=== PATIENT | female | born 1985 | race Caucasian/White ===

== ENCOUNTER 2017-06-01 17:27 | Emergency (ER) | payer BC, SELFPAY ==
[2017-06-01 17:28] VITALS: BP 140/81; PULSE 106; RESP 16; TEMP 36.6; O2SAT 98; BMI 33.5
--- NOTE | 2017-06-01 17:50 | ED.DCSUM_ITS ---
- ER Visit Summary Date of Service: 06/01/17 Chief Complaint: Left thigh pain History of Present Illness: The patient is a 32 F presenting with left thigh pain. Patient states she started having pain in the medial aspect of her left thigh. It then went to behind her left knee. She denies any injury. She went to urgent care today and was sent to the ED to rule out DVT. She has a family history of factor V Leiden. She has been tested for this and does not have it personally. She is 8 weeks . Denies chest pain or shortness of breath. Denies other complaints. Physical Examination: Vitals are stable. Patient is afebrile. Alert no acute distress. HEENT exam is unremarkable. Neck is supple. Lungs are clear and equal bilaterally. Heart is regular rate and rhythm. Extremities are mild left medial thigh tenderness. No swelling or erythema. Normal distal pulses. Skin is warm and dry. No focal neurologic deficit. Remainder of exam is unremarkable. Emergency Department Course and Treatment: Ultrasound of the left lower extremity shows no evidence of DVT. She is advised to use Tylenol for pain. Advised to follow-up with her primary care physician. Advised return to ED for worsening complaints. Disposition: Discharge home Impression: Left thigh pain This note was generated with [employer] dictation software. It may contain incorrect words, spelling, and punctuation that were not noted in review of the chart prior to signing ED Disposition - Plan for ED Patient: Chief Complaint: Lower Extremity Injury Referrals: Harish Lopez MD [Primary Care Provider] -
--- NOTE | 2017-06-01 17:52 | US_ITS ---
STUDY: VENOUS DOPPLER ULTRASOUND - LEFT LOWER EXTREMITY REASON FOR EXAM: Female, 32 years old. Pain TECHNIQUE: Ultrasound evaluation of the deep vein system to include peter-scale imaging and compression was performed. Peter-scale imaging and Doppler sonographic evaluation, including duplex spectral analysis and qualitative color flow sonography, was performed. COMPARISON: None. FINDINGS: Common Femoral Vein: Normal compression, spontaneity and augmentation. Normal color Doppler. Common Femoral Vein/Greater Saphenous Junction: Normal compression. Femoral Proximal: Normal compression. Femoral Middle: Normal compression, spontaneity and augmentation. Normal color Doppler. Femoral Distal: Normal compression. Popliteal Vein: Normal compression, spontaneity and augmentation. Normal color Doppler. Posterior Tibial Vein: Normal compression. Peroneal Vein: Normal compression. US/Venous Duplex Imag/Limited/Uni IMPRESSION: Normal venous Doppler ultrasound of the lower extremity. Electronically Signed: Girish Cedeno DO at 18:39 EDT Tel [phone], Service support ,
[2017-06-01 18:24] VITALS: BP 121/77; PULSE 92; RESP 15; O2SAT 96
--- NOTE | 2017-06-01 18:25 | ED.DEP ---
ED Disposition - Plan for ED Patient: Chief Complaint: Lower Extremity Injury Instructions: ED Knee Pain [facility] Referrals: Harish Lopez MD [Primary Care Provider] -
== END 2017-06-01 18:34 | disposition home or self-care (01) ==
LOC: ED 18:34
PROVIDERS: Emergency Provider Emergency Medicine; Family Provider Family Medicine; PCP Family Medicine
DX: O99.89 Other specified diseases and conditions complicating pregnancy, childbirth and the puerperium (principal); M79.652 Pain in left thigh; Z3A.08 8 weeks gestation of pregnancy
CPT/HCPCS: 93971; 99282

== ENCOUNTER 2018-01-07 00:20 | Inpatient (IN) | payer BC, SELFPAY ==
[2018-01-07 00:10] VITALS: BMI 37.1
[2018-01-07 00:12] LABS: ROM Internal Control Test YES-OK TO RESULT pt. (Internal QC)
[2018-01-07 00:14] LABS: ROM Patient Test POSITIVE (Negative)
[2018-01-07 01:30] LABS: Hematocrit 33.9 % (37-47); Hemoglobin 11.1 g/dl (12.0-15.0); Mean Corp Hgb Conc 32.7 g/gl (32-36); Mean Corpuscular Hgb 28.8 pg (27.0-32.0); Mean Corpuscular Volume 87.8 fL (81-99); Mean Platelet Vol. 10.4 fl (6.2-12.0); Platelet Count 352 K/mm3 (150-450); RBC Distribution Width CV 14.3 % (11.6-14.6); Red Blood Count 3.86 M/mm3 (4.2-5.4); White Blood Count 16.6 K/mm3 (4.4-11.0)
[2018-01-07 01:33] LABS: Scan Indicated on CBC? Y/N NO
[2018-01-07] MEDS: miSOPROStol 25 MCG TABLET PO ×2 (02:51→07:09)
--- NOTE | 2018-01-07 07:40 | HP.PCM_ITS ---
- Problem List (1) PROM (premature rupture of membranes) Status: Acute Qualifiers: PROM gestational age: full term History Date of Admission: 01/07/18 Final FLOR: 01/07/18 Gestational age: 40 Weeks and 0 Days History of this : This is a 32 year-old, G [1], P [0], at 40 weeks gestational age presenting to triage for evaluation of irregular contractions and bright red spotting. Patient reports +FM, denies any regular cramping or contractions. Allergies acetaminophen [From Percocet] Allergy (Verified 01/07/18 00:12) Angioedema meperidine [From Demerol] Allergy (Verified 01/07/18 00:12) Angioedema oxycodone [From Percocet] Allergy (Verified 01/07/18 00:12) Angioedema hydrocodone Adverse Reaction (Verified 01/07/18 00:12) Upset Stomach pseudoephedrine [From Sudafed] Adverse Reaction (Verified 01/07/18 00:12) Upset Stomach Home Medications: Home Medications Vits [Prenatabs FA] 1 tablet PO DAILY 06/01/17 Omeprazole Magnesium [Prilosec Otc] 20 mg PO DAILY 01/07/18 Smoking Status: Never smoker Alcohol: None Number of Fetus(es): 1 Heart Tracing: FHT baseline 130, moderate variability, few accels, no decels TOCO Analysis: Ctx irregular q 1-6 minutes lasting 30 seoncdx, mildly palpable History Past Pregnancies: Past Pregnancies Delivery Date Name GA/Weeks Outcome Route Weight Gender Labor Length Anesthesia Delivery Location Provider FOB Labs: A+, Abs Neg, HepBsAg Neg, Rubella Immune, HIV NR, Syphilis NR, Urine Tox Neg, Urine Culture NEg, GBS Neg, 1 hour GTT 106, GC/CT = Neg/Neg Expected Infant Delivery Method: Spontaneous Vaginal Describe any other labor & delivery plans:: Patient plans an epidural Number of Visits: >15 Review of Systems Constitutional: Denies: Chills, Fever, Weight Change HEENT: Denies: Head Aches, Sinus Congestion, Sinus Drainage Cardiovascular: Denies: Chest Pain, Palpitations Respiratory: Denies: Cough, Shortness of breath at rest, Sputum production Gastrointestinal: Denies: Abdominal Pain, Nausea, Vomiting Genitourinary: Denies: Dysuria Gynecological: Reports: Vaginal discharge - Continues to have some vaginal bright red spotting Musculoskeletal: Denies: Joint Pain, Joint Tenderness Skin: Denies: Rash, Wounds Neurological: Denies: Numbness, Tingling, Focal weakness Psychiatric: Reports: Anxiety - Patient reports increased anxiety with contractions, anxiety and fear with cervical exams. Denies: Depression, Homicidal Ideations, Suicidal Ideations Hematologic/ Lymphatic: Denies: Easy Bruising, Easy Bleeding Physical Exam Vitals: VSS, Afebrile - see nurse's notes for vitals General: Alert, Oriented x3, No apparent distress HEENT: Atraumatic, Normocephalic. Negative for: Thyromegaly, Lymphadenopathy Cardiovascular: Regular rate, Regular Rhythm Lungs: Normal air movement Abdomen: Soft, Non Tender, Non-Distended, Gravid Extremities:: No edema Neurological: Deep Tendon Reflexes 2+/4 and Symmetrical DELIMBER OPERATOR: Normal external genitalia Estimated gestational size: Appropriate for gestational size Presentation: Cephalic Cervix Dilation (cm): 0.5 Station: -2 Effacement (%): 50 Assessment/Plan All Active Problems PROM (premature rupture of membranes) (Acute) This is a 32 year-old, G [1], P [0], at 40 weeks gestational age, PROM, Category I FHT, Labor Augmentation with PO Cytotec. 1) Patient admitted - plans for PO Cytotec. 2nd dose given at 0650 2) Drs. Sharma and Oliver back-up physicians notified of admission and plan of care 3) Anticipate pitocin IV for labor augmentation once cervix is favorable and ripe 4) Encourage position changes and PO hydration 5) Nitrous oxide for pain management at this time - patient reports desire for epidural once it's time Rajani CASTELAN
[2018-01-07 10:18] VITALS: O2SAT 99
[2018-01-07] MEDS: 0.9% Saline Lock 10 ML Syringe IV (10:53)
[2018-01-07] MEDS: Nalbuphine 10 MG/ML Ampul IV (10:58)
[2018-01-07] MEDS: Lactated Ringers 1,000 ML 50 ML IV ×4 (11:00→21:45)
[2018-01-07] MEDS: fentaNYL-bupivacaine (epidural) 100 ML BAG EPIDURAL ×3 (12:05→21:30)
[2018-01-07] MEDS: Ondansetron 4 MG/2 ML Vial IV (12:20)
[2018-01-07] MEDS: 0.9% Normal Saline 100 ML IV.SOLN. INTRA-UTER (12:36)
--- NOTE | 2018-01-07 12:44 | PCM.PN.OB ---
Patient Problems: Active and Suspected Problems PROM (premature rupture of membranes) (Acute) Subjective: Comfortable with epidural. at bedside. Objective: FHT:120, minimal variability, accels, no decels, Category 2 FHT TOCO: Irregular 1cm/90%/-2 Simpson catheter placed without difficulty. - Physical Exam Vital Signs Pulse Ox 99 01/07/18 10:18 Oxygen Delivery Method Room Air Weight: 230 lb 6.129 oz Body Mass Index (BMI) 37.1 Laboratory Tests Past 24 Hrs 01/06/18 01/07/18 01/07/18 23:40 01:15 01:15 WBC 16.6 H RBC 3.86 L Hgb 11.1 L Hct 33.9 L MCV 87.8 MCH 28.8 MCHC 32.7 RDW 14.3 RDW Differential 45.0 H Plt Count 352 MPV 10.4 Vag Amniotic Fld Detect POSITIVE H Blood Type A POSITIVE Antibody Screen NEGATIVE Medical Necessity - Tobacco Use Smoking Status: Never smoker Assessment/Plan All Active Problems PROM (premature rupture of membranes) (Acute) A:SROM Category 2 FHT P: 1) Epidural for pain management. 2) Simpson bulb for continued cervical ripening. 3) Start Pitocin for active management 4) for collaborative physician.
[2018-01-07] MEDS: Oxytocin 30 units/NS 500 ml 30 UNITS/500 ML IV.SOLN IV (12:49)
[2018-01-07] MEDS: proMETHazine 25 MG/ML Syringe IV (18:09)
--- NOTE | 2018-01-07 19:02 | PCM.PN.OB ---
Patient Problems: Active and Suspected Problems PROM (premature rupture of membranes) (Acute) Subjective: Resting in bed, comfortable with epidural. Emesis, Phenergan given for nausea, feeling better. Mother at bedside. Objective: FHT 135, minimal variability, no accels, no decels, Category 2 TOCO: every 2-3 minutes. lasting 60-70 seconds, strong Pitocin at 10 mu's. Cervix 7cm/90%/0. Right side of cervix has become swollen. - Physical Exam Vital Signs Pulse Ox 99 01/07/18 10:18 Oxygen Delivery Method Room Air Weight: 230 lb 6.129 oz Body Mass Index (BMI) 37.1 Laboratory Tests Past 24 Hrs 01/06/18 01/07/18 01/07/18 23:40 01:15 01:15 WBC 16.6 H RBC 3.86 L Hgb 11.1 L Hct 33.9 L MCV 87.8 MCH 28.8 MCHC 32.7 RDW 14.3 RDW Differential 45.0 H Plt Count 352 MPV 10.4 Vag Amniotic Fld Detect POSITIVE H Blood Type A POSITIVE Antibody Screen NEGATIVE Medical Necessity - Tobacco Use Smoking Status: Never smoker Assessment/Plan All Active Problems PROM (premature rupture of membranes) (Acute) A:Active labor, progressing Category 2 FHT P: 1) Continue with active management 2) Positional changes and peanut ball to help reduce swollen cervix 3) updated on patient status.
[2018-01-07] MEDS: Oxytocin 30 units/NS 500 ml 30 UNITS/500 ML IV.SOLN 334 UNITS IV (22:18)
[2018-01-07] MEDS: Oxytocin 30 units/NS 500 ml 30 UNITS/500 ML IV.SOLN 167 UNITS IV (22:48)
--- NOTE | 2018-01-07 23:18 | PCM.OB.VAG ---
- Problem List (1) Vaginal delivery Status: Acute (2) Second degree perineal laceration Status: Acute Vaginal Delivery Maternal Presentation: Spontaneous Rupture of Membranes Method of Induction: Pitocin - augmentation, Simpson Bulb Amniotic Membrane Rupture Type: Spontaneous at home Amniotic Fluid Description: Clear Final FLOR: 01/07/18 Gestational age: 40 Weeks and 0 Days Date of Procedure: 01/07/18 Pre-Operative Diagnosis: SROM Post-Operative Diagnosis: Surgery/ Procedure Performed: Spontaneous Vaginal Delivery Type of Anesthesia: Epidural Description of Procedure: Progressed to complete with urge to push. of viable male infant over 2nd degree perineal laceration. APGARS 8,9. Weight pending. Infant delivered without complications and placed on maternal abdomen skin to skin. Spontaneous cry, mouth and nares suctioned for secretions. Cord clamped and cut after pulsations ceased. Placenta delivered via isaiah, intact, 3 vessel cord. Pitocin started for active 3rd stage management. Perineum inspected and revealed 2nd degree perineal laceration. Repaired with epidural and 3.0 vicryl, well approximated and hemostasis achieved. initiated. Family bonding well. Mom and baby stable. notified of delivery. Presentation: Vertex Placental Delivery Description: Spontaneous Placenta Disposition: [facility] Cord Vessel Description: 3 Vessels Cord Entanglement: None Estimated Blood Loss: 200ml Infant A gender: Male (1 minute): 8 (5 minute): 9 Episiotomy Description: None Laceration: Perineal Extension/lac, 2nd degree Medications given after delivery: IV Pitocin Complications: None
[2018-01-08] MEDS: Acetaminophen 500 MG Tablet 1000 MG PO ×3 (01:44→17:31)
[2018-01-08 04:15] VITALS: BP 108/64; PULSE 98; RESP 18; TEMP 37.3
[2018-01-08 07:40] VITALS: BP 124/71; PULSE 98; RESP 16; TEMP 37.2; O2SAT 97
--- NOTE | 2018-01-08 09:02 | PCM.PN.OB ---
Patient Problems: Active and Suspected Problems PROM (premature rupture of membranes) (Acute) Vaginal delivery (Acute) Second degree perineal laceration (Acute) Subjective: Doing well per patient and nursing staff. Ambulating and taking PO without difficulty. Voiding and passing flatus. . Denies any headache, visual changes, chest pain ,SOB,leg pain, increased vaginal bleeding or clots. Planning D/C home tomorrow. - Physical Exam General: Alert, Oriented x3, Cooperative HEENT: Atraumatic, Normocephalic Lungs: Clear to auscultation, No rhonchi, No wheeze Cardiovascular: Regular rate, Regular Rhythm, No murmurs Abdomen: - - Fundus firm 2 below u Extremities: No edema Psych/Mental Status: Normal Affect, Appropriate Vital Signs Temp Pulse Resp BP Pulse Ox 99 F 98 16 124/71 H 97 01/08/18 07:40 01/08/18 07:40 01/08/18 07:40 01/08/18 07:40 01/08/18 07:40 Oxygen Delivery Method Room Air Weight: 230 lb 6.129 oz Body Mass Index (BMI) 37.1 Intake and Output for Last 24 Hours 01/06/18 01/07/18 01/08/18 23:59 23:59 23:59 Intake Total 4580 / 4580 Output Total 2049 / 2049 400 / 400 Balance 2530 / 2530 -400 / -400 Medical Necessity - Tobacco Use Smoking Status: Never smoker Assessment/Plan All Active Problems PROM (premature rupture of membranes) (Acute) Vaginal delivery (Acute) Second degree perineal laceration (Acute) A:PPD #1 2nd degree perineal laceratin P: 1) Routine PP care. 2) instructions given. 3) Planning D/C home tomorrow.
[2018-01-08 13:23] VITALS: BP 125/81; PULSE 94; RESP 16; TEMP 36.9; O2SAT 98
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
[2018-01-08] MEDS: Ibuprofen 600 MG Tablet PO ×2 (15:08→23:49)
--- NOTE | 2018-01-08 15:14 | CASEMGMT ---
Full social work assessment and progress note in 's chart. No needs identified for SW intervention. Qian PEREZ,VERITOA
[2018-01-08 16:30] VITALS: BP 125/66; PULSE 88; RESP 16; TEMP 36.9; O2SAT 98
[2018-01-08 19:56] VITALS: BP 117/81; PULSE 89; RESP 18; TEMP 36.3; O2SAT 97
[2018-01-08] MEDS: Senna/Docusate Sodium 1 Tablet PO (23:49)
[2018-01-09 02:00] VITALS: BP 133/72; PULSE 87; RESP 18; TEMP 36.3
[2018-01-09] MEDS: Acetaminophen 500 MG Tablet 1000 MG PO (03:11)
[2018-01-09] MEDS: Ibuprofen 600 MG Tablet PO ×2 (06:38→15:24)
[2018-01-09 08:10] VITALS: BP 126/69; PULSE 87; RESP 16; TEMP 36.6; O2SAT 98
--- NOTE | 2018-01-09 08:53 | PN.OBGYN_ITS ---
Patient Problems: Active and Suspected Problems PROM (premature rupture of membranes) (Acute) Vaginal delivery (Acute) Second degree perineal laceration (Acute) Subjective: Patient doing well. Pain controlled. Tolerating regular diet without nausea or vomiting. Ambulating and spontaneously voiding without difficulty. Breast-f eeding. Denies lightheadedness, dizziness, chest pain, shortness of breath, leg pain. Lochia decreasing. She feels ready to go home today. - Physical Exam General: Alert, Oriented x3 HEENT: Atraumatic Lungs: - - No increased resp effort Abdomen: Soft, Non Tender, - - FF@U Extremities: No edema, No Calf Tenderness Skin: No rashes Neurological: Neuro grossly intact Psych/Mental Status: Normal Affect, Appropriate Vital Signs Temp Pulse Resp BP Pulse Ox 97.4 F L 87 18 133/72 H 97 01/09/18 02:00 01/09/18 02:00 01/09/18 02:00 01/09/18 02:00 01/08/18 19:56 Oxygen Delivery Method Room Air Weight: 230 lb 6.129 oz Body Mass Index (BMI) 37.1 Intake and Output for Last 24 Hours 01/07/18 01/08/18 01/09/18 23:59 23:59 23:59 Intake Total 4580 / 4580 Output Total 2049 / 2049 400 / 400 Balance 2530 / 2530 -400 / -400 Medical Necessity - Tobacco Use Smoking Status: Never smoker Assessment/Plan All Active Problems PROM (premature rupture of membranes) (Acute) Vaginal delivery (Acute) Second degree perineal laceration (Acute) PPD#2 s/p - Doing well - - Discussed control - Dispo: D/c home today. Instructions given
--- NOTE | 2018-01-09 08:55 | DCINST_ITS ---
Discharge Diet: No Restrictions Discharge Activity: Return to Normal Activity, May Drive, May Shower May resume sexual activity in: 4-6 weeks Weight Bearing Status: Full weight bearing Lifting Restrictions: None Call your doctor if you observe: Fever of 101 or Higher, Numbness or Tingling, Inability to urinate, Inability to have a bowel movement, Using more than one pad per hour, Shortness of breath, Dizziness, Chest pain, Increased palpitations (irregular heartbeat), Calf discomfort, Uncontrolled pain Additional Instructions: If you experience any of the following, contact your healthcare provider. * Bleeding that soaks a pad every hour for 2 hours * Fever 100.4 or higher * Unrelieved incision or abdominal pain * Swelling, redness, discharge or bleeding from your incision or epis iotomy site * Your incision begins to separate * Problems urinating (including inability to urinate or burning while urinating). * Visual changes * Severe headache * Flu-like symptoms * Pain or redness in one of both of your breasts * Pain, warmth, tenderness or swelling in your legs, especially the calf area * Frequent nausea and vomiting * Symptoms of depression or anxiety If you experience any of the following, call 911 or go to the nearest Emergency Room. * Chest pain * Problems breathing * Seizure activity * Partial or complete paralysis of a body part, slurred speech, weakness or drooping of the face, or a sudden inability to walk or hold your balance Allergies/Adverse Reactions: Allergies acetaminophen [From Percocet] Allergy (Verified 01/07/18 00:12) Angioedema meperidine [From Demerol] Allergy (Verified 01/07/18 00:12) Angioedema oxycodone [From Percocet] Allergy (Verified 01/07/18 00:12) Angioedema hydrocodone Adverse Reaction (Verified 01/07/18 00:12) Upset Stomach pseudoephedrine [From Sudafed] Adverse Reaction (Verified 01/07/18 00:12) Upset Stomach Medications to take at Discharge Vits [Prenatabs FA] 1 tablet PO DAILY 06/01/17 Omeprazole Magnesium [Prilosec Otc] 20 mg PO DAILY 01/07/18 When: Follow up in 1-2 weeks if you desires. Call to schedule appointment to follow up in 4-6 weeks. Primary Care Physician: Harish Lopez MD [Primary Care Provider] - Test Results: Test results from this visit will be discussed in further detail at your follow- up appointment, if applicable.
[2018-01-09 15:15] VITALS: BP 129/77; PULSE 92; RESP 18; TEMP 36.5; O2SAT 97
--- NOTE | 2018-01-13 16:33 | NURSING ---
A voicemail left for patient. Encouraged to call if we could offer any assistance in answering any questions or if she would have any concerns. Everardo MAYS
== END 2018-01-09 16:40 | disposition home or self-care (01) | DRG 807 ==
LOC: WPOUT 00:26
PROVIDERS: Obstetrics & Gynecology; Admitting Provider Obstetrics & Gynecology; Family Provider Family Medicine; PCP Family Medicine; Visit Provider Obstetrics & Gynecology
DX: O42.02 Full-term premature rupture of membranes, onset of labor within 24 hours of rupture (principal); Z37.0 Single live birth; O70.1 Second degree perineal laceration during delivery; K21.9 Gastro-esophageal reflux disease without esophagitis; O99.62 Diseases of the digestive system complicating childbirth; Z3A.40 40 weeks gestation of pregnancy
CPT/HCPCS: 59025; 59050; 84112; 85027; 86850; 86900; 99218; J7120; A4216; G0378; J2405

== ENCOUNTER 2018-03-21 21:11 | Emergency (ER) | payer BC, SELFPAY ==
[2018-03-21 21:12] VITALS: BP 155/79; PULSE 81; RESP 16; TEMP 36.3; O2SAT 99; BMI 35.6
[2018-03-21 21:24] VITALS: BP 160/96; PULSE 85; RESP 16; TEMP 36.5; O2SAT 98
--- NOTE | 2018-03-21 21:50 | ED.VISSUMM ---
- ER Visit Summary Date of Service: 03/21/18 Chief Complaint: Back pain History of Present Illness: The patient is a 33 F with a history of chronic back problems after herniating 2 discs at the age of 16. She had back surgery approximately 7 years ago. She had episode of back pain and left leg numbness and weakness approximately a month ago that was treated with anti-inflammatories and steroids. Patient states she had been doing better, but slipped on the ice 2 days ago and now has recurrent pain and weakness in the left lower extremity. She was seen by her chiropractor today but had increasing pain tonight. She did take ibuprofen prior to arrival. Patient has known allergies to oxycodone, hydrocodone, Demerol. Physical Examination: Vital signs significant for blood pressure of 160/96, otherwise normal. Head neck examination is normal. Heart is regular rate and rhythm. Lung sounds are clear. Abdomen is soft nontender. Back examination reveals mild tenderness in the low lumbar midline as well as left paraspinals. Straight leg raise in the seated position is negative. Patient has 2+ bilateral patellar reflexes with strong distal pulses. Patient does have slight weakness noted to the left leg, but overall decent range of motion and is able to lift her leg off the bed. Test Results: [] Emergency Department Course and Treatment: Patient was initially given morphine, Zofran, and Flexeril. On repeat evaluation she reported only minimal improvement. She was then given 0.5 mg of Dilaudid. At this time she does report improvement. Patient has reported allergies to oxycodone, hydrocodone, and Demerol. She states they tend to make her stomach upset do not help her pain. She will be given a fentanyl patch along with Naprosyn, prednisone, and Flexeril. She will be referred to both orthopedic groups to follow-up with their spine specialists. Treatment Plan: [] Disposition: Discharge Impression: Acute on chronic back pain This note was generated with [email or web address] dictation software. It may contain incorrect words, spelling, and punctuation that were not noted in review of the chart prior to signing ED Disposition - Plan for ED Patient: Chief Complaint: Back Referrals: Harish Lopez MD [Primary Care Provider] -
[2018-03-21] MEDS: Ondansetron 4 MG/2 ML Vial IV (21:58)
[2018-03-21] MEDS: Morphine 4 MG/ML Syringe IV (22:00)
[2018-03-21] MEDS: HYDROmorphone 0.5 MG/0.5 ML SYRINGE IV (22:51)
--- NOTE | 2018-03-21 23:58 | ED.DEP ---
ED Disposition - Plan for ED Patient: Disposition: Home or Assisted Living Chief Complaint: Back Instructions: ED Neck Back Pain General Prescriptions: Fentanyl 1 each TD Q72H 3 Days #2 patch.td72 Naproxen [Naprosyn] 500 mg PO BID PRN PRN #20 tablet PRN Reason: Pain predniSONE tablet 60 mg PO DAILY #15 tablet Cyclobenzaprine [Flexeril] 10 mg PO TID PRN #20 tablet PRN Reason: Muscle Spasm Referrals: Harish Lopez MD [Primary Care Provider] - Krystle Diaz MD [STAFF PHYSICIAN] - Chadd Garnett MD [STAFF PHYSICIAN] - Reina Tristan DO [STAFF PHYSICIAN] -
[2018-03-22 00:25] VITALS: BP 120/70; PULSE 80; RESP 16; O2SAT 97
--- OUTSIDE RECORDS SUMMARY | 2018-05-24 05:36 | XMS RPT_ITS ---
:1985 Author Organization OHIP Care Team Providers Name Role Phone Moisés Lopez Primary Care Unavailable Cyndi Harris Attending Unavailable Moisés Lopez Attending Unavailable Moisés Lopez Referring Unavailable John, Moisés Primary Care Unavailable John, Moisés Primary Care Unavailable Kiersten Segura Attending Unavailable ASSESSMENT, HEALTH RISK Attending Unavailable Moisés Lopez Primary Care Unavailable John, Moisés Primary Care Unavailable Stephanie Boyd Admitting Unavailable Stephanie Boyd Attending Unavailable MOISÉS BELLA Attending Unavailable LASHON WANG Attending Unavailable LASHON WANG Referring Unavailable LASHON WANG Attending Unavailable LASHON WANG Referring Unavailable JASON NASH Attending Unavailable BRUNILDA DALAL LASHON Referring Unavailable SCOTT NELLIE (CNM) Referring Unavailable HOSEA LIGHT Attending Unavailable SCOTT NELLIE (CNM) Referring Unavailable SCOTT NELLIE (CNM) Attending Unavailable HOSEA LIGHT Referring Unavailable JASON NASH Attending Unavailable JASON NASH Referring Unavailable LILIAN SOODA (CNM) Attending Unavailable SUSAN KIMBROUGH (PRIVATE WATCHMAN) Attending Unavailable INDIGO, BRITNEY (CNM) Attending Unavailable INDIGO, BRITNEY (CNM) Attending Unavailable INDIGO, BRITNEY (CNM) Referring Unavailable CHAVEZ, NELLIE (CNM) Attending Unavailable CHAVEZ, NELLIE (CNM) Referring Unavailable CHAVEZ, NELLIE (CNM) Attending Unavailable INDIGO, BRITNEY (CNM) Attending Unavailable MEÑO AZUL Attending Unavailable STEPHANIE BOYD Attending Unavailable MEÑO AZUL Attending Unavailable LASHON WANG Attending Unavailable STEPHANIE BOYD Attending Unavailable SCOTT, NELLIE (CNM) Attending Unavailable SCOTT NELLIE (CNM) Attending Unavailable SUSAN KIMBROUGH (PRIVATE WATCHMAN) Attending Unavailable PROBLEMS PROBLEMS DATE TYPE CONDITION / CODE ATTENDING STATUS SOURCE 03/23/2018 Unknown M54.10 - Moisés Lopez Active [facility], Community site unspecified / Hospital M54.10(ICD-10) Repository 02/24/2018 Active Sciatica, left MOISÉS BELLA Active [facility] side / [facility] Other [place] M54.32(ICD-10) Repository 10/18/2017 Active 28 weeks gestation NA Active [facility] of / [facility] Z3A.28(ICD-10) Repository 08/16/2017 Active 19 weeks gestation NELLIE CHAVEZ Active [facility] of / (CNM) Main [place] Z3A.19(ICD-10) Repository 06/23/2017 Active Encounter for NA Active [facility] Main [place] screening for Repository nuchal translucency / Z36.82(ICD-10) 06/23/2017 Active Encounter for NA Active [facility] supervision of [facility] normal first Repository , first trimester / Z34.01(ICD-10) 06/23/2017 Active 11 weeks gestation NA Active [facility] of / [facility] [place] Z3A.11(ICD-10) Repository 05/21/2017 Active Obesity NA Active [facility] complicating [facility] [place] , Repository unspecified trimester / O99.210(ICD-10) 05/24/2017 Active Encounter for NA Active [facility] supervision of [facility] other normal Repository , first trimester / Z34.81(ICD-10) 05/21/2017 Active Unknown / NA Active [facility] UNK(Unknown) Main [place] Repository PROCEDURES PROCEDURES No Procedure Records FoundRESULTS RESULTS L/S SPINE MIN 4 Observed: 03/23/2018 Status: F Source: [place] VIEWS 12:21 PM [facility] REPOSITORY [facility] Imaging Services [address] [place] [address] L/S Spine Min 4 Views MR#: [id number] Acct: [id number] Name: KATIE JUAREZ Rep #: [id number] : 1985 F 33 From: Yanick Caldera MD PCP: Moisés Lopez MD Status: REG CLI Study: L/S Spine Min 4 Views Date of Exam: 03/23/18 Exam# [id number] Ordering Dr: Moisés Lopez MD HISTORY: Back Pain COMPARISON: None FINDINGS: XR Spine Lumbar 5 views The lumbar vertebra show normal height and alignment. No fracture or bony abnormality. L5-S1 mild disc space narrowing compatible with early degenerative disc disease. No spondylolisthesis. The SI joints appear preserved. Constipation pattern. RAD/L/S Spine Min 4 Views IMPRESSION: 1. No fracture or acute disease. 2. L5-S1 early degenerative disc disease. 3. Constipation pattern. at 0515 Reported and signed by: Yanick Caldera MD Electronically Signed: Yanick Caldera, at 5:14 EST Tel , Service support , CC: Moisés Lopez MD Grounds Worker: Signed EMERGENCY DEPARTMENT Observed: 03/22/2018 Status: C Source: [place]IR SUMMARY 9:32 AM [facility] REPOSITORY [facility] Medical Records Department [address] [place] [address] Emergency Department Summary 03/21/18 2150 MR#: [id number] Acct: [id number] Name: KATIE JUAREZ Rep #: [id number] : 1985 33 From: Cyndi Harris MD PCP: Moisés Lopez MD Status: DEP ER ADDENDUM by Kentrell Hutchinson MD on 03/22/18 at 0932 Received a call from patient. The prescription for fentanyl did not have a strength. Will attempt to transmit electronically otherwise father will need to present to the emergency room to get a new prescription. 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 She had back surgery approximately 7 years ago. She had episode of back pain and left leg numbness and weakness approximately a month ago that was treated with anti-inflammatories and steroids. Patient states she had been doing better, but slipped on the ice 2 days ago and now has recurrent pain and weakness in the left lower extremity. She was seen by her chiropractor today but had increasing pain tonight. She did take ibuprofen prior to arrival. Patient has known allergies to oxycodone, hydrocodone, Demerol. Physical Examination: Vital signs significant for blood pressure of 160/96, otherwise normal. Head neck examination is normal. Heart is regular rate and rhythm. Lung sounds are clear. Abdomen is soft nontender. Back examination reveals mild tenderness in the low lumbar midline as well as left paraspinals. Straight leg raise in the seated position is negative. Patient has 2+ bilateral patellar reflexes with strong distal pulses. Patient does have slight weakness noted to the left leg, but overall decent range of motion and is able to lift her leg off the bed. Test Results: [] Emergency Department Course and Treatment: Patient was initially given morphine, Zofran, and Flexeril. On repeat evaluation she reported only minimal improvement. She was then given 0.5 mg of Dilaudid. At this time she does report improvement. Patient has reported allergies to oxycodone, hydrocodone, and Demerol. She states they tend to make her stomach upset do not help her pain. She will be given a fentanyl patch along with Naprosyn, prednisone, and Flexeril. She will be referred to both orthopedic groups to follow-up with their spine specialists. Treatment Plan: [] Disposition: Discharge Impression: Acute on chronic back pain This note was generated with ViVu dictation software. It may contain incorrect words, spelling, and punctuation that were not noted in review of the chart prior to signing ED Disposition - Plan for ED Patient: Chief Complaint: Back Referrals: Moisés Lopez MD [Primary Care Provider] - What to do if you have Problems For any increased pain, shortness of breath, bleeding, nausea or vomiting, chest pain, or any unexpected problems, contact your Primary Care Provider. Call [facility] ([phone]) or report to the closest Emergency Room. Call 911 if necessary. 03/22/18 0001 <Electronically signed by Cyndi Harris MD> Date Cyndi Harris MD Cosigner Signature (If Indicated): Date CC: Moisés Lopez MD DISCHARGE INSTRUCTION Observed: 03/21/2018 Status: F Source: [place] 11:59 PM [facility] REPOSITORY [facility] Medical Records Department [address] [place] [address] Discharge Instruction 03/21/18 2358 MR#: [id number] Acct: [id number] Name: ANNKATIE Rep #: [id number] : 1985 33 From: Cyndi Harris MD PCP: Moisés Lopez MD Status: REG ER ED Disposition - Plan for ED Patient: Disposition: Home or Assisted Living Chief Complaint: Back Instructions: ED Neck Back Pain General Prescriptions: Fentanyl 1 each TD Q72H 3 Days #2 patch.td72 Naproxen [Naprosyn] 500 mg PO BID PRN PRN #20 tablet PRN Reason: Pain predniSONE tablet 60 mg PO DAILY #15 tablet Cyclobenzaprine [Flexeril] 10 mg PO TID PRN #20 tablet PRN Reason: Muscle Spasm Referrals: Moisés Lopez MD [Primary Care Provider] - Krystle Diaz MD [STAFF PHYSICIAN] - Chadd Garnett MD [STAFF PHYSICIAN] - Reina Tristan DO [STAFF PHYSICIAN] - What to do if you have Problems For any increased pain, shortness of breath, bleeding, nausea or vomiting, chest pain, or any unexpected problems, contact your Primary Care Provider. Call [facility] ([phone]) or report to the closest Emergency Room. Call 911 if necessary. 03/21/18 7586 <Electronically signed by Cyndi Harris MD> Date Cyndi Harris MD Cosigner Signature (If Indicated): Date CC: Moisés Lopez MD DISCHARGE INSTRUCTION Observed: 03/21/2018 Status: F Source: [place] 11:57 PM [facility] REPOSITORY [facility] Medical Records Department [address] [place] [address] Discharge Instruction 03/21/18 2347 MR#: [id number] Acct: [id number] Name: KATIE JUAREZ Rep #: [id number] : 1985 33 From: Cyndi Harris MD PCP: Moisés Lopez MD Status: REG ER ED Disposition - Plan for ED Patient: Disposition: Home or Assisted Living Chief Complaint: Back Instructions: ED Neck Back Pain General Prescriptions: Fentanyl 1 each TD Q72H 3 Days #2 patch.td72 Naproxen [Naprosyn] 500 mg PO BID PRN PRN #20 tablet PRN Reason: Pain predniSONE tablet 60 mg PO DAILY #15 tablet Cyclobenzaprine [Flexeril] 10 mg PO TID PRN #20 tablet PRN Reason: Muscle Spasm Referrals: Moisés Lopez MD [Primary Care Provider] - Chadd Garnett MD [STAFF PHYSICIAN] - Krystle Diaz MD [STAFF PHYSICIAN] - What to do if you have Problems For any increased pain, shortness of breath, bleeding, nausea or vomiting, chest pain, or any unexpected problems, contact your Primary Care Provider. Call [facility] ([phone]) or report to the closest Emergency Room. Call 911 if necessary. 03/21/18 9122 <Electronically signed by Cyndi Harris MD> Date Cyndi Harris MD Cosigner Signature (If Indicated): Date CC: Moisés Lopez MD ED NOTE Observed: 02/24/2018 Status: COMPLETED Source: [place] 7:55 AM [facility] REPOSITORY [facility] ID: [id number] Author: Leona (Rn) TABATHA Mosher Service: Emergency Medicine Author Type: Registered Nurse Type: ED Notes Filed: 02/25/2018 10:28 AM Note Text: Patient Call Back Information ? How are you doing ? better ? Did we appropriately manage your pain? Yes ? Did you understand your discharge instructions? Yes ? Did you get your prescriptions filled? Yes ? Were you able to make a follow-up appointment with your physician? Yes ? Were you comfortable during your stay here? Yes ? Did a member of the ER nursing team round on you during your visit? Yes ? You will receive a patient satisfaction survey in the mail in the nest 2 weeks, please take the time to fill out the survey as your input from your ER visit is very important to us. Yes ? Can we do anything else to help you? No ED NOTE Observed: 02/24/2018 Status: COMPLETED Source: [place] 7:32 AM [facility] REPOSITORY [facility] ID: [id number] Author: Leona GonzalezRn) TABATHA Mosher Service: Emergency Medicine Author Type: Registered Nurse Type: ED Notes Filed: 02/24/2018 7:32 AM Note Text: Received report from sanjiv douglass rn , assumed care of pt ED NOTE Observed: 02/24/2018 Status: COMPLETED Source: [place] 7:13 AM [facility] REPOSITORY [facility] ID: [id number] Author: John Paul GonzalezRn) TABATHA Douglass Service: Nursing Author Type: Registered Nurse Type: ED Notes Filed: 02/24/2018 7:17 AM Note Text: Patient informed: the name of medication, why we are giving it, possible side effects, what they may expect to feel, and was offered a chance to ask questions, prior to the administration of Morphine, prednisone. ED NOTE Observed: 02/24/2018 Status: COMPLETED Source: [place] 6:23 AM [facility] REPOSITORY [facility] ID: [id number] Author: John Paul GonzalezRn) TABATHA Douglass Service: Nursing Author Type: Registered Nurse Type: ED Notes Filed: 02/24/2018 6:28 AM Note Text: Patient informed: the name of medication, why we are giving it, possible side effects, what they may expect to feel, and was offered a chance to ask questions, prior to the administration of Toradol, Norflex. ED NOTE Observed: 02/24/2018 Status: COMPLETED Source: [place] 6:15 AM [facility] REPOSITORY [facility] ID: [id number] Author: Jacquie GonzalezRn) TABATHA Shepherd Service: Emergency Medicine Author Type: Registered Nurse Type: ED Notes Filed: 02/24/2018 6:15 AM Note Text: Patient informed: the name of medication, why we are giving it, possible side effects, what they may expect to feel, and was offered a chance to ask questions, prior to the administration of toradol, norflex ED PROV NOTE Observed: 02/24/2018 Status: COMPLETED Source: [place] 6:13 AM [facility] REPOSITORY [facility]NO ID: [id number] Author: Moisés Bella DO Service: Emergency Medicine Author Type: Physician Type: ED Provider Notes Filed: 02/24/2018 7:48 AM Note Text: ED Provider Note Patient Name: Katie Juarez SERVICE DATE: 02/24/18 History Patient presents with: Back Pain Patient presents with back pain that began approximately 1 hour prior to arrival. Patient states she was changing a diaper when she developed back pain. The patient states the pain is over the left lower lumbar area and radiates to her left leg and foot. Patient admits to some paresthesias in her left foot. She denies any weakness. Patient denies any bowel or bladder changes. Patient denies any saddle anesthesia. Patient denies any trauma or injury. PAST MEDICAL HISTORY Diagnosis Date - Anxiety - anxiety - Depression - Fibrocystic breast changes - fibrocystic breasts - kidney stone 2017 - Lumbar back pain - Migraines - nausea with anesthesia - Other acne PAST SURGICAL HISTORY Procedure Laterality Date - BACK SURGERY HX - EXTRACTION ERUPTED TOOTH/EXR 10/18/2014 x4 - PAST SURGICAL HISTORY OF tonsillectomy - PAST SURGICAL HISTORY OF 01/03/2013 Lumbar (Dr. Brown) - TONSILLECTOMY HX FAMILY HISTORY Problem Relation Age of Onset - Allergies Mother - other (Ovarian cysts) Mother - other (Factor V- Pt states she was tested and does not have) Mother - None Father - other (esophageal reflux) Maternal Grandmother - Heart Maternal Grandfather - Alzheimer's Disease Paternal Grandmother Social History Social History Main Topics - Smoking status: Never Smoker - Smokeless tobacco: Never Used - Alcohol use Yes Comment: rare, not while - Drug use: No - Sexual activity: Yes Partners: Male ALLERGIES Allergen Reactions - Demoral [Meperidine] Swelling - Hydrocodone-Acetami* GI Upset - Percocet [Oxycodone* Swelling - Sudafed [Pseudoephe* Shortness of Breath Review of Systems Respiratory: Negative for shortness of breath. Cardiovascular: Negative for chest pain. Gastrointestinal: Negative for nausea and vomiting. Genitourinary: Negative for difficulty urinating and dysuria. Musculoskeletal: Positive for back pain. Negative for neck pain. Neurological: Positive for numbness. Physical Exam BP 145/99 Pulse 86 Temp (Src) 98.2 (Temporal Artery) Resp 20 Ht 5' 6 (1.68m) Wt 211 lb (95.7kg) SpO2 97% BMI 34.07 kg/(m2). Physical Exam Constitutional: She is oriented to person, place, and time. She appears well-developed and well-nourished. HENT: Head: Normocephalic and atraumatic. Neck: Normal range of motion. Cardiovascular: Normal rate and regular rhythm. Pulmonary/Chest: Effort normal and breath sounds normal. Abdominal: Soft. There is no tenderness. Musculoskeletal: Lumbar back: She exhibits decreased range of motion, tenderness, pain and spasm. She exhibits no bony tenderness and no deformity. Back: Neurological: She is alert and oriented to person, place, and time. She has normal strength and normal reflexes. No cranial nerve deficit. Reflex Scores: Patellar reflexes are 2+ on the right side and 2+ on the left side. Achilles reflexes are 2+ on the right side and 2+ on the left side. Skin: Skin is warm and dry. Psychiatric: She has a normal mood and affect. Her behavior is normal. Nursing note and vitals reviewed. Diagnostic Testing ED Labs Ordered and Reviewed - No data to display Procedures ED Course / Clinical Impression Clinical Impressions as of Feb 25 744 Sciatica of left side MDM / Disposition / Plan Patient was given injections of Toradol and Norflex initially. Patient had minimal relief with this. Patient was given injection of morphine and a dose of oral prednisone. Patient states she was starting to feel better after this. Patient was instructed to go home and rest. Patient was instructed to continue using ice to the area. Patient was given prescriptions for prednisone and Norflex. Patient was instructed to follow-up with her primary care physician in 5-7 days. Patient understood and was agreeable with the plan. All questions were answered. Disposition The patient was discharged and given RX. Counseled patient and family regarding suspected diagnosis. As well as the need for follow-up. Discharged home with verbal and written instructions. They were instructed to return as needed for persistent or worsening symptoms or any new concerns. Medication(s) prescribed include prednisone, Norflex. Condition at disposition is stable. SIGNATURE: DO Moisés Canales DO 02/24/18 0748 ED NOTE Observed: 02/24/2018 Status: COMPLETED Source: [place] 6:04 AM [facility] REPOSITORY [facility] ID: [id number] Author: John Paul (Rn) TABATHA Douglass Service: Nursing Author Type: Registered Nurse Type: ED Notes Filed: 02/24/2018 6:07 AM Note Text: Pt reports back pain that started last night. Pt has limited movement in torso and lower left extremity. Pt is not able to light left leg off bed. Pt states that she has had pain like this before, just not so intense, and was alleviated by chiropractic intervention. Pt is tearful. Pt states that she did not take any medications at home because I wasn't sure what would work for this. Pt utilized cold therapy prior to visit to ED. ED NOTE Observed: 02/24/2018 Status: COMPLETED Source: [place] 5:58 AM [facility] REPOSITORY [facility] ID: [id number] Author: Jacquie GonzalezRn) TABATHA Shepherd Service: Emergency Medicine Author Type: Registered Nurse Type: ED Notes Filed: 02/24/2018 5:59 AM Note Text: Back pain, sudden onset 0430 while changing an infant on the changing table. PROGRESS Observed: 02/23/2018 Status: COMPLETED Source: [place] 1:38 PM [facility] REPOSITORY [facility]NO ID: [id number] Author: Susan Gavin) Joel Service: (none) Author Type: Nurse Practitioner Type: Progress Notes Filed: 02/23/2018 1:44 PM Note Text: Katie Juarez is a 33 year old female who presents for problem visit Follow up for yeast on the nipple with . HPI: pt states that she is still very sore and the nipples are red. She is using the nipple cream. Denies any fever, chills, bleeding or cracking. PAST MEDICAL HISTORY Diagnosis Date - Anxiety - anxiety - Depression - Fibrocystic breast changes - fibrocystic breasts - kidney stone 2017 - Lumbar back pain - Migraines - nausea with anesthesia - Other acne PAST SURGICAL HISTORY Procedure Laterality Date - BACK SURGERY HX - EXTRACTION ERUPTED TOOTH/EXR 10/18/2014 x4 - PAST SURGICAL HISTORY OF tonsillectomy - PAST SURGICAL HISTORY OF 01/03/2013 Lumbar (Dr. 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 omeprazole (PRILOSEC) 20 mg capsule Take 1 capsule by mouth once daily. Entcqrna-Ee-Obv-Fe-FA ( VITAMIN) tab Take 1 tablet by mouth. fluconazole (DIFLUCAN) 150 mg tablet Take 1 tablet by mouth one time only for 1 dose. Repeat in 3 days. Norethindrone, Contraceptive, (ORTHO MICRONOR) 0.35 mg tablet Take 1 tablet by mouth once daily. No current facility-administered medications for this visit. Allergies As of Date: 02/23/2018 Allergen Noted Reaction DEMORAL [MEPERIDINE] 05/23/2012 Swelling HYDROCODONE-ACETAMINOPHEN 05/24/2017 GI Upset PERCOCET [OXYCODONE-ACETAMINOPHEN]05/23/2012 Swelling SUDAFED [PSEUDOEPHEDRINE HCL] 03/02/2006 Shortness of Breath Fully Assessed 02/23/2018 REVIEW OF SYSTEMS Breast: red nipples and pain. Expanded ROS: N/A Allergies and current medication updated:Yes EXAM: BP 118/72 Wt 211 lb (95.7kg) GENERAL: pleasant, female in no apparent distress HEENT: Normocephalic, atraumatic, mucus membranes moist and no lesions BREAST: soft, symmetric, no dominant mass, no lymphadenopathy, no nipple discharge and nipples red no cracking or bleeding noted CHEST: Normal inspiratory effort NEURO: alert and oriented x3,exam grossly non-focal ASSESSMENT AND PLAN: Yeast infection of the nipples Diflucan x 2 doses Continue to use the nipple cream Follow up Wednesday if symptoms are not resolved Susan Kimbrough APRN.PRIVATE WATCHMAN CNOV Observed: 02/23/2018 Status: COMPLETED Source: [place] 12:45 PM [facility] REPOSITORY Office Visit (WOOB) KATIE JUAREZ ([id number]) 1985 F T Date Time Provider Department 02/23/18 12:45 PM SUSAN KIMBROUGH (LALA) WOOB During your visit today, we recorded the following information about you: Blood pressure Weight 118/72 95.7 kg Susan Kimbrough APRN.CNP 02/23/2018 1:44 PM Signed Katie Juarez is a 33 year old female who presents for problem visit Follow up for yeast on the nipple with . HPI: pt states that she is still very sore and the nipples are red. She is using the nipple cream. Denies any fever, chills, bleeding or cracking. PAST MEDICAL HISTORY Diagnosis Date - Anxiety - anxiety - Depression - Fibrocystic breast changes - fibrocystic breasts - kidney stone 2016 - Lumbar back pain - Migraines - nausea with anesthesia - Other acne PAST SURGICAL HISTORY Procedure Laterality Date - BACK SURGERY HX - EXTRACTION ERUPTED TOOTH/EXR 10/18/2014 x4 - PAST SURGICAL HISTORY OF tonsillectomy - PAST SURGICAL HISTORY OF 01/03/2013 Lumbar (Dr. 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 omeprazole (PRILOSEC) 20 mg capsule Take 1 capsule by mouth once daily. Evtqahep-Ld-Bts-Fe-FA ( VITAMIN) tab Take 1 tablet by mouth. fluconazole (DIFLUCAN) 150 mg tablet Take 1 tablet by mouth one time only for 1 dose. Repeat in 3 days. Norethindrone, Contraceptive, (ORTHO MICRONOR) 0.35 mg tablet Take 1 tablet by mouth once daily. No current facility-administered medications for this visit. Allergies As of Date: 02/23/2018 Allergen Noted Reaction DEMORAL [MEPERIDINE] 05/23/2012 Swelling HYDROCODONE-ACETAMINOPHEN 05/24/2017 GI Upset PERCOCET [OXYCODONE-ACETAMINOPHEN]05/23/2012 Swelling SUDAFED [PSEUDOEPHEDRINE HCL] 03/02/2006 Shortness of Breath Fully Assessed 02/23/2018 REVIEW OF SYSTEMS Breast: red nipples and pain. Expanded ROS: N/A Allergies and current medication updated:Yes EXAM: BP 118/72 Wt 211 lb (95.7kg) GENERAL: pleasant, female in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 or go to your nearest emergency department. Cord-Blood Banking Up until recently, the umbilical cord--along with the blood that remained in it after a baby was born and the cord cut--was simply discarded by the hospital. Then, in the late 1980s, researchers discovered that cord blood possessed unusual properties that made it useful in the treatment of patients with some cancers and other illnesses. While the actual process of collecting cord blood is straightforward, many parents are not even aware that this option now exists, much less familiar with all the issues involved. The case for saving your baby's cord blood The blood running back and forth between your baby and the placenta is full of immature cells called stem cells. Unlike embryonic stem cells, which have the ability to develop into any type of body cell, cord-blood stem cells already are locked into a certain, vital function: making all the different components of the blood, such as platelets, white blood cells, and red blood cells-serving, in effect, like bone marrow. When transfused into a patient whose own blood cells have faulty genetic coding or have been destroyed by chemotherapy or other cancer treatments, the cord-blood cells can implant themselves in the bone marrow and generate legions of new, healthy cells. These days, cord-blood transplants most commonly are used in cancer patients when a donor can't be found for a bone-marrow transplant. The treatment is particularly effective in young patients- the [facility] Cord Blood Bank reports a 70 percent success rate in children, but only 20 to 40 percent in adults. Researchers envision improving those odds and see many future applications as well, such as curing sickle cell disease and other blood-related genetic illnesses. So there is a possibility that your child, or someone else, may need these super-healthy and versatile cells one day. The drawbacks Aside from not knowing about this medical option, the main reason most people do not save their baby's stem cells is cost. In a private blood bank, the initial costs run from $275 to $1,500. Most also charge a yearly storage fee of $50 to $95. The advantage of using a private bank is that your sample is saved for only you to use. An alternative to private banking Public cord-blood gupta are an alternative. These cost no money to use, but your sample is not specifically saved for you. Another person with a more immediate need may use it. If the time should come that you need stem cells, yours may still be available, or you may use donations from other people without charge. You also can direct your sample to go to a relative with an immediate need if the blood type matches. Anyone else needing to use stem cells from a public bank who has not been a donor must pay for it, sometimes tens of thousands of dollars. Will my family benefit from saving stem cells? Right now, situations in which stem cells would be helpful are quite rare. As mentioned earlier, stem-cell transplants are most commonly used for rare genetic conditions and for some types of cancer, including leukemia and lymphoma. And even with these present uses, many questions remain. In cancer treatment, for example, some researchers are concerned about the wisdom of transplanting back into the child the same cells that already showed a propensity to become malignant. Doctors also aren't sure if the number of cells taken at the time of would be enough to treat a full-grown 16-year-old. It is also not completely clear how active the cells would be after years of being stored. The treatment is so new and rare, we just don't have the data yet to resolve these important issues. What do the experts say? The [place] [employer] encourages philanthropic blood banking in public gupta, but only for families with a current or potential need. Blood-bank proponents encourage any kind of banking, pointing out that research is getting closer and closer to many diverse, live-saving applications. How do I decide? Each family must weigh the pros and cons for themselves. Some families say that any cost is worth their peace of mind. Others say that in the face of uncertainty about the effectiveness of the treatment, they will use their resources elsewhere. Some choose the middle ground of donating publicly, knowing that their sample might benefit another family, if not themselves. For more information, ask your doctor or nurse, and be sure to check out our article on the technical aspects of cord-blood banking. Technical Aspects of Cord-Blood Banking If you are interested in storing your baby's umbilical- cord blood because of its possible use in emerging medical treatments, you must make arrangements with a blood bank before your child is born. The collection procedure is quite simple: After delivery of the baby, the umbilical cord is clamped and cut in the usual way. The blood that remains in the umbilical-cord vessels is then collected in sterile containers. The blood may be removed from the cord with a large needle or allowed to flow freely, depending on the company's collection system. The containers may look like large test tubes or like the plastic bags used in a blood bank. It does not cause the mother or the baby any pain to collect the blood, and no blood is taken that the baby needs at the moment. The nurse, food and beverage lead, or physician will then label the samples, check them over with you, and package them for a special pickup arranged with a commercial carrier. When the blood arrives at the blood- bank facility, it is processed and the parents are notified. It is then kept in an advanced storage system for years. How do I know that my sample is safe? Power outages and bankruptcies potentially could threaten any organization, but so far none have been reported. It is to be hoped that the scientists in these gupta would arrange for safe transfer to another facility if the need arose. YOU MUST MAKE ARRANGEMENTS AHEAD OF TIME! Public cord-blood gupta--DONATION: [employer] [phone] [facility], [place], Operated By [facility] Placental Blood Program, [facility] Umbilical Cord Blood Bank, Private cord-blood gupta--SAVING FOR YOUR OWN USE: [employer] [facility], (I think this is the least expensive) [employer] [phone] [employer], [phone]) [employer] [place] [facility], [phone] Cells, [phone] [place] [facility], Cord Blood Registry, (785) C[employer], An Internet search may provide you with additional listings. Disposition: Return in 3 days (on 05/24/2017) for New OB with Dr Dalal. Follow-up and Disposition History Recorded Letter Text Dear Katie Juarez: How to activate your [facility] [employer] Account 1. Visit the [employer] Signup page at [email or web address] 2. Identify yourself using your one-time use activation code: [email or web address] 3. Follow the on-screen prompts to choose your own secure username and password The following information will be necessary to access your account for the first time: Information needed for sign-up: Your custom activation code used one-time only for the initial account set-up. Your date of The last 4 digits of your social security number What to do next: Fill in the requested information on the Identify Yourself Form at [email or web address] , click Next. Create your login and password, choose a [employer] ID and password that will be easy for you to use, but impossible for anyone else to guess. Pick a security question that will assist you in the event you forget your password the next time you log-on. If you have difficulty activating your account, please call our [employer] helpline at [phone] or toll free at . We hope you enjoy using [employer]! Kindest Regards, [facility] [employer] Team Encounter Status:Closed by SARABJIT CARRION RN on 05/21/17 ALLERGIES ALLERGIES DATE TYPE / NAME / CODE REACTION SEVERITY SOURCE CODE 03/21/2018 Drug hydrocodone/[id number] Upset Stomach Unknown Jair Allergy/41 4(RXNORM) Community [id number]([facility]) Repository 03/21/2018 Drug oxycodone/R563653657( Angioedema Unknown Jair Allergy/41 RXNORM) Community [id number]([facility]) Repository 03/21/2018 Drug acetaminophen/D477039 Angioedema Unknown Reese Allergy/41 605(RXNORM) Community [id number]([facility]) Repository 03/21/2018 Drug pseudoephedrine/F0060 Upset Stomach Unknown Reese Allergy/41 27141(RXNORM) Community [id number]([facility]) Repository 03/21/2018 Drug meperidine/S903033610 Angioedema Unknown Jair Allergy/41 (RXNORM) Community [id number]([facility]) Repository 05/24/2017 DRUG/77681 HYDROCODONE-ACETAMINO GI UPSET [place] 1003([facility] Other D CT) [place] Repository 05/23/2012 DRUG MEPERIDINE SWELLING [place] INGREDI/41 Clinic Other [id number]([facility]) Repository 05/23/2012 DRUG/61637 OXYCODONE-ACETAMINOPH SWELLING [place] 1003([facility] Other D CT) [place] Repository 03/02/2006 DRUG PSEUDOEPHEDRINE HCL SHORTNESS OF [place] INGREDI/41 Clinic Other [id number]([facility]) Repository ENCOUNTERS ENCOUNTERS ADMIT/DISCHARGE ACCOUNT ADMITTING ENCOUNTER LOCATION SOURCE NUMBER CLASS 03/23/2018 [id number] Ambulatory General acute hospital ing:MTRAD Repository 03/21/2018/03/22/19 [id number] Emergency [address] ing:ED Repository 02/24/2018/02/25/20 [id number] Emergency [address] Other [place] Repository 02/23/2018/02/26/20 [id number] Ambulatory [place] [facility] [place] Repository 02/18/2018/02/26/20 [id number] Ambulatory [place] [facility] [place] Repository 02/14/2018/02/17/20 [id number] Ambulatory [place] [facility] [place] Repository 01/07/2018/01/10/20 [id number] Kristenrashaun Stephanie Inpatient [address] ing:WPRoom: Repository [id number]: 1 01/03/2018/01/05/20 [id number] Ambulatory [place] [facility] [place] Repository 12/29/2017/12/31/19 [id number] Ambulatory [place] [facility] [place] Repository 12/20/2017/12/22/19 [id number] Ambulatory [place] [facility] [place] Repository 12/14/2017 [id number] Ambulatory General acute hospital ing:HW Repository 12/13/2017/12/15/19 [id number] Ambulatory [place] [facility] [place] Repository 11/30/2017/12/03/19 [id number] Ambulatory [place] [facility] [place] Repository 11/17/2017/11/18/19 [id number] Ambulatory [place] [facility] [place] Repository 11/03/2017/11/07/19 [id number] Ambulatory [place] [facility] [place] Repository 10/20/2017/10/21/19 [id number] Ambulatory [place] [facility] [place] Repository 10/20/2017/10/22/19 [id number] Ambulatory [place] [facility] [place] Repository 10/18/2017/10/19/19 [id number] Ambulatory [place] [facility] [place] Repository 10/18/2017/10/20/19 [id number] Ambulatory [place] [facility] [place] Repository 09/22/2017/09/24/19 [id number] Ambulatory [place] [facility] [place] Repository 09/17/2017/09/21/19 [id number] Ambulatory [place] [facility] [place] Repository 09/15/2017/09/17/19 [id number] Ambulatory [place] [facility] [place] Repository 08/16/2017/08/18/19 [id number] Ambulatory [place] [facility] Main [place] Repository 08/16/2017/08/19/19 [id number] Ambulatory [address] Main [place] Repository 07/29/2017 [id number] Ambulatory [facility] Main [place] Repository 07/20/2017/07/21/19 [id number] Ambulatory [place] [address] [facility] Main [place] Repository 06/23/2017/06/24/19 [id number] Ambulatory [address] Main [place] Repository 06/23/2017/06/24/19 [id number] Ambulatory [address] Main [place] Repository 06/23/2017/06/26/19 [id number] Ambulatory [address] Main [place] Repository 06/01/2017/06/02/19 [id number] Emergency Reese Reese [address] [place] [address] ing:ED Repository 06/01/2017/06/03/19 [id number] Ambulatory [address] Main [place] Repository 05/24/2017/05/25/19 [id number] Ambulatory [address] Main [place] Repository 05/24/2017/05/25/19 [id number] Ambulatory [address] Main [place] Repository 05/21/2017/05/26/19 [id number] Ambulatory [address] Main [place] Repository PAYERS PAYERS ENCOUNTER GUARANTOR PAYER SUBSCRIBER SOURCE 03/23/2018 KATIE Estrada Primary KATIE Estrada Reese [id number] Insurance:ANTHEMPolic MAPESDOB: [facility]ly [facility] [place]: [id number] [id number] Repository [address]405Gwr: [phone]) Date:3711-10-86EI [phone] () 101[address]MDDCYPW, [place] [address]GV: 03/23/2018 Secondary NOT GIVENUNK Jair Insurance:SELF PAY [facility] Number: Effective Repository Date:2018-03-23 03/21/2018 KATIE Estrada Primary KATIE Thorneoster [id number] S Insurance:ANTHEMPolic MAPESDOB: Formerly [facility] [place] y Number: [id number] [id number] Repository [address]10[address]Wyl: ([phone]) Date:6264-67-36LY [phone] () 617093QNIPTOELESA MCCLAIN [address]TH: 03/21/2018 Secondary NOT GIVENUNK Jair Insurance:SELF PAY [facility] Number: Effective Repository Date:2018-03-21 01/07/2018 KATIE M Primary KATIE M Reese [id number] S Insurance:ANTHEMPolic MAPESDOB: Community [facility] y Number: [id number] [id number] Repository 288[address]Tnf: ([phone]) Date:0109-42-49AN [phone] () 372607QVCLBHP, [place] [address]IE: 01/07/2018 Secondary NOT GIVENUNK Reese Insurance:SELF PAY [facility] Number: Effective Repository Date:2018-01-06 12/14/2017 KATIE M Primary NOT GIVENUNK Jair [id number] S Insurance:SELF PAY [place] Number: Effective Repository [id number]: ([phone]) Date:2017-12-07 [phone] () 06/01/2017 KATIE M Primary KATIE M Jair [id number] S Insurance:ANTHEMPolic MAPESDOB: [facility] y Number: [id number] [id number] Repository 30[address]Oyc: ([phone]) Date:5521-61-71FA [phone] () [id number], [place] [address]AQ: 06/01/2017 Secondary NOT GIVENUNK Reese Insurance:SELF PAY [facility] Number: Effective Repository Date:2017-06-01
== END 2018-03-22 00:25 | disposition home or self-care (01) ==
PROVIDERS: Emergency Provider Emergency Medicine; Family Provider Family Medicine; PCP Family Medicine
DX: M54.5 Low back pain (principal); G89.29 Other chronic pain
CPT/HCPCS: 96374; 96375; 99284; A4216; J2405

== ENCOUNTER → 2018-03-23 12:17 | Outpatient (CLI) | payer BC, SELFPAY ==
[2018-03-21 21:12] VITALS: BMI 35.6
--- NOTE | 2018-03-23 12:21 | RAD_ITS ---
HISTORY: Back Pain COMPARISON: None FINDINGS: XR Spine Lumbar 5 views The lumbar vertebra show normal height and alignment. No fracture or bony abnormality. L5-S1 mild disc space narrowing compatible with early degenerative disc disease. No spondylolisthesis. The SI joints appear preserved. Constipation pattern. RAD/L/S Spine Min 4 Views IMPRESSION: 1. No fracture or acute disease. 2. L5-S1 early degenerative disc disease. 3. Constipation pattern. at 0515 Reported and signed by: Yanick Caldera MD Electronically Signed: Yanick Caldera, at 5:14 EST Tel , Service support ,
--- OUTSIDE RECORDS SUMMARY | 2018-05-25 10:33 | XMS RPT_ITS ---
:1985 Author Organization OHIP Care Team Providers Name Role Phone LASHON WANG Attending Unavailable LASHON WANG Referring Unavailable LASHON WANG Attending Unavailable LASHON WANG Referring Unavailable JASON NASH Attending Unavailable LASHON WANG Referring Unavailable NELLIE CHAVEZ (TA) Referring Unavailable HOSEA LIGHT Attending Unavailable NELLIE CHAVEZ (CN) Referring Unavailable NELLIE CHAVEZ (TA) Attending Unavailable HOSEA LIGHT Referring Unavailable JASON NASH Attending Unavailable JASON NASH Referring Unavailable BRITNEY SOOD (CNM) Attending Unavailable SUSAN KIMBROUGH (PLASTERER APPRENTICE) Attending Unavailable BRITNEY SOOD (CNM) Attending Unavailable BRITNEY SOOD (CNM) Attending Unavailable INDIGO, BRITNEY (CNM) Referring Unavailable NELLIE CHAVEZ (CNM) Attending Unavailable NELLIE CHAVEZ (CNM) Referring Unavailable NELLIE CHAVEZ (CNM) Attending Unavailable BRITNEY SOOD (CNM) Attending Unavailable MEÑO AZUL Attending Unavailable STEPHANIE BOYD Attending Unavailable MEÑO AZUL Attending Unavailable LASHON WANG Attending Unavailable STEPHANIE BOYD Attending Unavailable NELLIE CHAVEZ (CNM) Attending Unavailable NELLIE CHAVEZ (CNM) Attending Unavailable SUSAN KIMBROUGH (PLASTERER APPRENTICE) Attending Unavailable MOISÉS BELLA Attending Unavailable John, Moisés Attending Unavailable Lopez, Moisés Referring Unavailable Lopez, Moisés Primary Care Unavailable Lopez, Moisés Primary Care Unavailable Stephanie Boyd Admitting Unavailable Stephanie Boyd Attending Unavailable ASSESSMENT, HEALTH RISK Attending Unavailable Lopez, Moisés Primary Care Unavailable Lopez, Moisés Primary Care Unavailable Kiersten Segura Attending Unavailable Lopez, Moisés Primary Care Unavailable Cyndi Harris Attending Unavailable PROBLEMS PROBLEMS DATE TYPE CONDITION / CODE ATTENDING STATUS SOURCE 03/23/2018 Unknown M54.10 - Moisés Lopez Active [facility], Community site unspecified / Hospital M54.10(ICD-10) Repository 02/24/2018 Active Sciatica, left MOISÉS BELLA Active [facility] side / [facility] Other [place] M54.32(ICD-10) Repository 10/18/2017 Active 28 weeks gestation NA Active [facility] of / [facility] Z3A.28(ICD-10) Repository 08/16/2017 Active 19 weeks gestation NELLIE CHAVEZ Active [facility] of / (CNM) Main [place] Z3A.19(ICD-10) Repository 06/23/2017 Active Encounter for Active [facility] Main [place] screening for Repository nuchal translucency / Z36.82(ICD-10) 06/23/2017 Active Encounter for NA Active [facility] supervision of [facility] normal first Repository , first trimester / Z34.01(ICD-10) 06/23/2017 Active 11 weeks gestation NA Active [facility] of / [facility] [place] Z3A.11(ICD-10) Repository 05/21/2017 Active Obesity NA Active [facility] complicating [facility] [place] , Repository unspecified trimester / O99.210(ICD-10) 05/24/2017 Active Encounter for NA Active [facility] supervision of [facility] other normal Repository , first trimester / Z34.81(ICD-10) 05/21/2017 Active Unknown / NA Active [facility] UNK(Unknown) Main [place] Repository PROCEDURES PROCEDURES No Procedure Records FoundRESULTS RESULTS L/S SPINE MIN 4 Observed: 03/23/2018 Status: F Source: JAIR VIEWS 12:21 PM [facility] REPOSITORY [facility] Imaging Services [address] [place] [address] L/S Spine Min 4 Views MR#: [id number] Acct: [id number] Name: KATIE JUAREZ Rep #: [id number] : 1985 F 33 From: Yanick Caldera MD PCP: Moisés Lopez MD Status: REG CLI Study: L/S Spine Min 4 Views Date of Exam: 03/23/18 Exam# [id number] Ordering Dr: Moisés Lopez MD HISTORY: Back [...] Service support , CC: Moisés Lopez MD Sports Medicine Coordinator: Signed EMERGENCY DEPARTMENT Observed: 03/22/2018 Status: C Source: JAIR SUMMARY 9:32 AM [facility] REPOSITORY [facility] Medical Records Department [address] [place] [address] Emergency Department Summary 03/21/18 2150 MR#: [id number] Acct: [id number] Name: KATIE JUAREZ Rep #: [id number] : 1985 33 From: Cyndi Harris MD [...] back pain This note was generated with [employer] dictation software. It may contain incorrect words, [...] your Primary Care Provider. Call [facility] ([phone]) or report to the closest Emergency Room. Call 911 if necessary. 03/22/18 0001 <Electronically signed by Cyndi Harris MD> Date Cyndi Harris MD Cosigner Signature (If Indicated): Date CC: Moisés Lopez MD DISCHARGE INSTRUCTION Observed: 03/21/2018 Status: F Source: JAIR 11:59 PM [facility] REPOSITORY [facility] Medical Records Department [address] [place] [address] Discharge Instruction 03/21/18 2358 MR#: [id number] Acct: [id number] Name: ANNKATIE Rep #: [id number] : 1985 33 From: Cyndi Harris MD [...] your Primary Care Provider. Call [facility] ([phone]) or report to the closest Emergency Room. Call 911 if necessary. 03/21/18 9953 <Electronically signed by Cyndi Harris MD> Date Cyndi Harris MD Cosigner Signature (If Indicated): Date CC: Moisés Lopez MD DISCHARGE INSTRUCTION Observed: 03/21/2018 Status: F Source: [place] 11:57 PM [facility] REPOSITORY [facility] Medical Records Department [address] [place] [address] Discharge Instruction 03/21/18 2347 MR#: [id number] Acct: [id number] Name: KATIE JUAREZ Rep #: [id number] : 1985 33 From: Cyndi Harris MD [...] your Primary Care Provider. Call [facility] ([phone]) or report to the closest Emergency Room. Call 911 if necessary. 03/21/18 6345 <Electronically signed by Cyndi Harris MD> Date Cyndi Harris MD Cosigner Signature (If Indicated): Date CC: Moisés Lopez MD ED NOTE Observed: 02/24/2018 Status: COMPLETED Source: ST[place]AL 7:55 AM [facility] REPOSITORY HNO ID: [id number] Author: Leona (Rn) TABATHA Mosher Service: Emergency [...] ED NOTE Observed: 02/24/2018 Status: COMPLETED Source: STENDAL 7:32 AM [facility] REPOSITORY HNO ID: [id number] Author: Leona GonzalezRn) TABATHA Mosher Service: Emergency Medicine Author Type: Registered Nurse Type: ED Notes Filed: 02/24/2018 7:32 AM Note Text: Received report from sanjiv douglass rn , assumed care of pt ED NOTE Observed: 02/24/2018 Status: COMPLETED Source: ST[place]AL 7:13 AM [facility] REPOSITORY HNO ID: [id number] Author: John Paul GonzalezRn) TABATHA Douglass Service: Nursing Author Type: Registered Nurse Type: ED Notes Filed: 02/24/2018 7:17 AM Note Text: Patient informed: the name of medication, why we are giving it, possible side effects, what they may expect to feel, and was offered a chance to ask questions, prior to the administration of Morphine, prednisone. ED NOTE Observed: 02/24/2018 Status: COMPLETED Source: STENDAL 6:23 AM [facility] REPOSITORY HNO ID: [id number] Author: John Paul GonzalezRn) TABATHA Dogulass Service: Nursing Author Type: Registered Nurse Type: ED Notes Filed: 02/24/2018 6:28 AM Note Text: Patient informed: the name of medication, why we are giving it, possible side effects, what they may expect to feel, and was offered a chance to ask questions, prior to the administration of Toradol, Norflex. ED NOTE Observed: 02/24/2018 Status: COMPLETED Source: STENDAL 6:15 AM [facility] REPOSITORY HNO ID: [id number] Author: Jacquie GonzalezRn) TABATHA Shepherd Service: Emergency [...] PROV NOTE Observed: 02/24/2018 Status: COMPLETED Source: STENDAL 6:13 AM [facility] REPOSITORY HNO ID: [id number] Author: Moisés Bella DO Service: Emergency Medicine [...] ED NOTE Observed: 02/24/2018 Status: COMPLETED Source: STENDAL 6:04 AM [facility] REPOSITORY [facility] ID: [id number] Author: John Paul (Rn) TABATHA Douglass Service: [...] ED NOTE Observed: 02/24/2018 Status: COMPLETED Source: STENDAL 5:58 AM [facility] REPOSITORY HNO ID: [id number] Author: Jacquie GonzalezRn) TABATHA Shepherd Service: Emergency Medicine Author Type: Registered Nurse Type: ED Notes Filed: 02/24/2018 5:59 AM Note Text: Back pain, sudden onset 0430 while changing an infant on the changing table. 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 omeprazole (PRILOSEC) 20 mg capsule Take 1 capsule by mouth once daily. 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 omeprazole (PRILOSEC) 20 mg capsule Take 1 capsule by mouth once daily. Toomtqes-Rg-Tuy-Fe-FA ( VITAMIN) tab Take 1 tablet by [...] if symptoms are not resolved Susan Kimbrough APRN.PLASTERER APPRENTICE Referring Provider: SELF [200] Allergies As of [...] 02/23/18 PROGRESS Observed: 02/18/2018 Status: COMPLETED Source: ST[place] 10:51 AM [facility] REPOSITORY O ID: [id number] Author: Nellie Chavez Service: (none) Author Type: Marketing Support Specialist Type: Progress Notes Filed: 02/21/2018 10:14 AM Note Text: VISIT Katie Juarez is a 32 year old year old here for visit. Delivery Summary: 01/07/18 Recovery: Feeding: Breast feeding problems: Inadequate milk supply, Sore nipples, Breast pain. Given Diflucan for nipple candidiasis. 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 Noticed slight improvement with feeding. 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 [employer] Social History Main Topics Smoking status: [...] external genitalia normal, normal Bartholin's glands, urethra, [place]ir[place]'s glands, no vulvar lesions, no cervical lesions, [...] APRN.CNM PROGRESS Observed: 02/14/2018 Status: COMPLETED Source: ST[place] 2:52 PM [facility] REPOSITORY [facility] ID: [id number] Author: Nellie Chavez Service: (none) Author Type: Marketing Support Specialist Type: Progress Notes Filed: 02/15/2018 2:36 PM [...] children: 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 Zvrbhlvr-Xw-Lpq-Fe-FA ( VITAMIN) tab Take 1 tablet by [...] of ankle [M77.9] INVALID FOR*11/30/2017 Chávez splints [S86.479A] INVALID FOR*11/30/2017 Pain in limb [M79.609] INVALID [...] 02/15/18 PROGRESS Observed: 01/10/2018 Status: COMPLETED Source: ST[place] 11:58 AM [facility] REPOSITORY HNO ID: [id number] Author: Shahana Davis LPN Service: (none) Author Type: (none) Type: Progress Notes Filed: 01/10/2018 11:58 AM Note Text: Pt delivered via at [facility] on 01/07/18 per Nellie Chavez CNM. See OB Outcome note. Shahana Davis LPN HOSP Observed: 01/10/2018 Status: COMPLETED Source: ST[place]AL 12:00 AM [facility] REPOSITORY Patient Update (WOOB) KATIE JUAREZ ([id number]) 1985 F CHT Date Time Provider Department 01/10/18 NELLIE CHAVEZ (JANNY) WOOB During your visit today, we recorded the following information about you: Shahana Davis LPN 01/10/2018 11:58 AM Signed Pt delivered via at [facility] on 01/07/18 per Nellie Chavez CNM. See [...] 01/09/2018 Status: F Source: JAIR 8:55 AM [facility] REPOSITORY [facility] Medical Records Department [address] [place] [address] [place] [address] Instructions for Home/Discharge Instructions 01/09/18 0854 MR#: [id number] Acct: [id number] Name: KATIE JUAREZ Rep #: [id number] : 1985 32 From: Stephanie Boyd DO [...] <Electronically signed by Stephanie Boyd DO> Date Setphanie Boyd DO CC: Moisés Lopez MD OPERATIVE REPORT Observed: 01/07/2018 Status: F Source: [place] 11:29 PM [facility] REPOSITORY [facility] Medical Records Department [address] [place] [address] Operative Report 01/07/18 2318 MR#: [id number] Acct: [id number] Name: KATIE JUAREZ Rep #: [id number] : 1985 32 From: Nellie Chavez CNM PCP: Moisés Lopez MD Status: ADM IN Y Location: IM639-7 - Problem List (1) Vaginal delivery Status: [...] AND PHYSICAL Observed: 01/07/2018 Status: F Source: [place] EXAM 7:50 AM [facility] REPOSITORY [facility] Medical Records Department [address] [place] [address] History and Physical 01/07/18 0735 MR#: [id number] Acct: [id number] Name: KATIE JUAREZ Rep #: [id number] : 1985 32 From: Britney Sood CNM PCP: Moisés Lopez MD Status: ADM IN Location: [id number] - Problem List (1) PROM (premature rupture [...] GeLabor LenAnesthesiDelivery Provider FOB Date ght [facility] a Location Labs: A+, Abs Neg, [...] Neurological: Deep Tendon Reflexes 2+/4 and Symmetrical SBA BUSINESS DEVELOPMENT OFFICER: Normal external genitalia Estimated gestational size: Appropriate [...] F Source: JAIR NO DIFF 1:15 AM [facility] REPOSITORY TYPE CODE TESTS RESULT OUT [...] MPV 10.4 Performed By: #### L100.0500 #### [facility] [address] [place], [address] TYPE AND SCREEN Collected: 01/07/2018 Status: F Source: [place] 1:15 AM [facility] REPOSITORY Order Comment: Reason for Type AND Screen/Red Cells: ROUTINE TYPE CODE TESTS RESULT OUT OF RANGE REFERENCE UNITS LAB B10.0800 A Normal BLOOD TYPE GEL POSITIVE LAB B100.4000 Normal Antibody NEGATIVE Screen Performed By: #### B101.7450 #### [facility] [address] [place], [place], [address] (ROM) RUPTURE OF Collected: 01/06/2018 Status: F Source: [place] [facility] 11:40 PM [facility] REPOSITORY TYPE CODE TESTS RESULT OUT OF REFERENCE UNITS RANGE LAB L205.1310 Negative High ROM POSITIVE Result Comment: Amniotic fluid present indicates rupture of Membranes. RESULTS CALLED TO ELEANOR Fang 01/07/18 Zainab Conner. REPORT READ BACK BY SAME . Performed By: #### L205.1000 #### [facility] [address] [place], [address] PROGRESS Observed: 12/20/2017 Status: COMPLETED Source: STENDAL 4:05 PM [facility] REPOSITORY O ID: [id number] Author: Katiana Jeff Ma Service: (none) Author Type: (none) Type: Progress Notes Filed: 12/20/2017 4:44 PM Note Text: 32 year old female here for INACTIVATED INFLUENZA VACCINE. 1135-9604 Season Patient is identified by name and date of : Yes [] CONTRAINDICATIONS color enhanced section Age less than 6 months? No Allergy to eggs, chicken, chicken feathers, or chicken dander? No Allergy to thimerosal (a preservative) or formaldehyde, gelatin? No History of severe reaction to any vaccine component or a previous dose of influenza vaccination? No History of Guillain-Bethune Syndrome within 6 weeks after a previous [...] sheet given? Yes See immunization activity in [facility] for details of immunizations adminstered today. Patient age: [age] year old For The 7084-7144 Flu Season 6-35 months old: Fluzone 0.25 [...] 12/14/2017 Status: F Source: JAIR 8:40 AM [facility] REPOSITORY TYPE CODE TESTS RESULT OUT [...] 44 Performed By: #### L500.4100, L501.0100 #### [facility] [address] [place], [address] GLUCOSE Collected: 12/14/2017 Status: F Source: JAIR 8:40 AM [facility] REPOSITORY TYPE CODE TESTS RESULT OUT OF RANGE REFERENCE UNITS LAB L501.0100 74-106 mg/dL Low GLU 69 Result Comment: Please note revised GLUCOSE reference range effective 2017. Performed By: #### L500.4100, L501.0100 #### [facility] [address] [place], [address] GROUP B STREP PCR Collected: 12/13/2017 Status: F Source: STENDAL 4:00 PM [facility] REPOSITORY TYPE CODE TESTS RESULT OUT OF REFERENCE UNITS RANGE LAB GBPCRT Negative for GROUP Group B B STREP PCR Streptococcus by PCR. Performed By: #### GBPCR #### [facility] [address] [place], [place] [address] PROGRESS Observed: 11/30/2017 Status: COMPLETED Source: STENDAL 3:33 PM [facility] REPOSITORY HNO ID: [id number] Author: Katiana Jeff Ma Service: (none) Author [...] severely ill: Yes Patient denies history of Guillain-Bethune Syndrome (a severe paralytic illness): Yes Tdap Adacel injection was given without incident. See immunizations for details of immunizations administered today. VIS sheet provided: Yes Provider Dr Azul was present in office at time of injection. Katiana Jeff Ma CNCNPATED Observed: 11/11/2017 Status: COMPLETED Source: ST[place]AL 12:00 AM [facility] REPOSITORY Education (WOOB) KATIE JUAREZ ([id number]) 1985 F T Date Time Provider Department 11/11/17 NURSE PNOB [facility] WSTR WOOB Reason for Visit: Class [4072] [...] Forceps 3. Vacuum extractor Physician presentations 1. OB-sidewalk repairer 2. Business Information Consultant 1. Mom's first hour 2. baby's first [...] Breath Date Reviewed: 11/03/2017 Reviewed by: Nellie ([facility]) Scott - Fully Assessed Prescriptions as of [...] 11/11/17 PROTEIN/CREATININE RATIO Collected: Status: F Source: [place]AL 10/22/2017 10:08 AM [facility] REPOSITORY TYPE CODE TESTS RESULT OUT OF REFERENCE UNITS RANGE LAB UTPR 0-20 mg/dL Protein Urine 9 Random LAB UCRR 20-300 mg/dL Creatinine,Ur 85.8 ine,Ran LAB PCRAT <0.2 Protein/Creat 0.1 inine Ratio Performed By: #### DARIA #### [facility] [address] [place] [id number] CBC Collected: 10/20/2017 Status: F Source: STENDAL 12:27 PM [facility] REPOSITORY TYPE CODE TESTS RESULT OUT OF [...] CBC, AST, BUN, CRET1, URIC, ALT #### [facility] [address] [place] [address] AST Collected: 10/20/2017 Status: F Source: ST[place]AL 12:27 PM [facility] REPOSITORY TYPE CODE TESTS RESULT OUT OF RANGE REFERENCE UNITS LAB AST 13-35 U/L AST 24 Performed By: #### CBC, AST, BUN, CRET1, URIC, ALT #### [place] [address] BUN Collected: 10/20/2017 Status: F Source: ST[place]AL 12:27 PM [facility] REPOSITORY TYPE CODE TESTS RESULT OUT OF RANGE REFERENCE UNITS LAB BUN 7-21 mg/dL Low BUN 5 Performed By: #### CBC, AST, BUN, CRET1, URIC, ALT #### [place] [address] CREATININE Collected: 10/20/2017 Status: F Source: ST[place]AL 12:27 [facility] REPOSITORY TYPE CODE TESTS RESULT OUT [...] CBC, AST, BUN, CRET1, URIC, ALT #### [facility] [address] [place], [place] [address] URIC ACID Collected: 10/20/2017 Status: F Source: ST[place]AL 12:27 PM [facility] REPOSITORY TYPE CODE TESTS RESULT OUT OF RANGE REFERENCE UNITS LAB URIC 2.5-6.6 mg/dL Uric Acid 2.8 Performed By: #### CBC, AST, BUN, CRET1, URIC, ALT #### [facility] [address] [place], [place] [address] ALT Collected: 10/20/2017 Status: F Source: ST[place]AL 12:27 PM [facility] REPOSITORY TYPE CODE TESTS RESULT OUT OF RANGE REFERENCE UNITS LAB ALT 7-38 U/L ALT 32 Performed By: #### CBC, AST, BUN, CRET1, URIC, ALT #### [address] [address] 50G, 1HR GEST. Collected: 10/18/2017 Status: F Source: ST[place]AL GSCRN 4:36 PM [facility] REPOSITORY TYPE CODE TESTS RESULT OUT OF REFERENCE UNITS RANGE LAB GLUP 74-134 mg/dL Glucose 112 Screen, Preg Result Comment: [place] [employer] of [employer]stetric[employer] and Gynec[employer] ([place]) guidelines state a gestational diabetes mellitus positive screen is made, in women not previously diagnosed with overt diabetes, when the 1 hr plasma glucose level is equal to or above 140 mg/dL. The [facility] Environmental Engineer Scientist and [facility] [place] recommends a 135 mg/dL cutoff. Performed By: #### GLTGST #### [facility] [address] [place], [place] [address] CBC AND DIFFERENTIAL Collected: 10/18/2017 Status: F Source: ST[place]AL 4:36 PM [facility] REPOSITORY TYPE CODE TESTS RESULT OUT OF [...] k/uL Abs Lymph 2.47 LAB AMONO % [place]% 9.6 LAB AAMONO <0.87 k/uL Abs [place] High 1.35 LAB AEOS % Eosin% 1.8 LAB AAEOS <0.46 k/uL Abs Eosin 0.25 LAB ABASO % Baso% 0.0 LAB AABASO <0.11 k/uL Abs Baso 0.00 LAB RBCMOR Red Cell Morph SEE COMMENT Result Comment: Unremarkable LAB PLTEST Platelet Platelet Estimate estimate adequate LAB DTYP DTYPE Manual Diff Performed By: #### CBCDIF #### [facility] [address] [place] [id number] CNPN Observed: 09/22/2017 Status: COMPLETED Source: ST[place]AL 12:00 AM [facility] REPOSITORY Telephone (WOOB) KATIE JUAREZ ([id number]) 1985 F T Date Time Provider Department 09/22/17 BRITNEY SOOD ([facility]) WOOB During your visit today, we [...] 09/22/17 PROGRESS Observed: 09/17/2017 Status: COMPLETED Source: [place] 11:45 AM [facility] REPOSITORY HNO ID: [id number] Author: Susan Gavin) Joel Service: (none) Author [...] children: 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 Eknrlcci-Am-Eoy-Fe-FA ( VITAMIN) tab Take 1 tablet by [...] and if the redness spread outside the kwethluk that was drawn. 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 Mtbwjhvd-Ln-Bgx-Fe-FA ( VITAMIN) tab Take 1 tablet by [...] and if the redness spread outside the kwethluk that was drawn. Susan Kimbrough APRN.PLASTERER APPRENTICE Referring Provider: SELF [200] Allergies As of [...] 09/17/17 PROGRESS Observed: 08/16/2017 Status: COMPLETED Source: STENDAL 4:19 PM [facility] REPOSITORY HNO ID: [id number] Author: Jason Nash Service: (none) Author Type: Physician Type: Progress Notes Filed: 08/16/2017 4:19 PM Note Text: Please see ultrasound report for details of this visit. Jason Nash M.D. SEQUENT SCRN SECOND Collected: 07/29/2017 Status: F Source: [facility] PATIENTS ONLY 12:08 PM CLINIC MAIN CAMPUS [...] Screen Negative LAB SE2SDN SE2 Scrn Rsk <1:27773 Dn Synd LAB SE2ADN 1:690 SE2 Age Rsk Dn Snyd LAB SE2STS SE2 Scr Rsk <1:54235 Trsmy 13 LAB SE2STR SE2 Scr Rsk <1:79158 Trsmy18 LAB SE2SON SE2 Scr Rsk 1:5000 ONTD LAB SE2RS View Seq Scrn results in Second Trim Scanned Documents link when available. LAB SEQLRV SEQ Staff Reviewed by Review James Lemons MD, PhD ([id number]) Performed By: #### SEQL2 #### [facility] [address], [place] [address] SEQUENT SCRN FIRST Collected: 06/23/2017 Status: F Source: STENDAL [facility] PATIENTS ONLY 3:05 PM [facility] REPOSITORY TYPE CODE TESTS RESULT OUT OF REFERENCE UNITS RANGE LAB SE1PAP MoM 1.46 SE1 KRIS A LAB SE1HCG MoM 0.66 SE1 hCG LAB SE1INT Final result pending second Final trimester SE1 result pending sample Interp second trimester sample LAB SE1SDN SE1 Scrn 1:38908 Rsk Dn Synd LAB SE1ADN 1:510 SE1 Age Rsk Dn Synd LAB SE1STR SE1 Scr <1:06099 Rsk Trsmy18 LAB SE1ATR SE1 Age 1:2000 Rsk Trsmy18 LAB SE1RS View Seq Scrn results in First Trim Scanned Documents link when available. LAB SEQLRV SEQ Staff Reviewed by Review Jose Tavarez, Ph.D. Performed By: #### SEQL1 #### [facility] [address] [id number] CYSTIC FIBROSIS SCR Collected: 06/23/2017 Status: F Source: STENDAL 3:04 PM [facility] REPOSITORY TYPE CODE TESTS RESULT OUT OF REFERENCE UNITS RANGE LAB CFNGST CF Cxg268 (NOTE) Halle Report Result Comment: Performing Pathologist: [...] Carrier Frequencies: : 1 in 28 Ashkenazi Advent: 1 in 29 : 1 in 59 : 1 in 70 : 1 in 84 : 1 in 91 : 1 in 242 METHOD: The Illumina haystaggDx Cystic Fibrosis 139-Variant Assay is a qualitative [...] CF- causing in the CFTR2 database at [facility], a product of the CFTR2 (Clinical and [...] sequencing on the MiSeqDx instrument. The MiSeq Sound Effects Person processes base calls generated during primary analysis. [...] rate is reported for PolyTG/PolyT results. REFERENCES: [place] [employer] of Obstetricians and Gynecologists Committee on Genetics. ACOG committee opinion No. 486: Update on Carrier Screening for Cystic Fibrosis. Obstet Gynecol. 2011;117(4):2965-2132. Danny JL, Bar Bradshaw M, Chanel EASTON, Giacomo PM. Cystic Fibrosis: A worldwide analysis of CFTR mutations-correlation with incidence data and application to screening. 2002. Hum Mutat 19:575-606. Aquiles NICHOLS. Cystic fibrosis genetics: from molecular understanding to clinical application. Ingrid Rev Jessica. 2015;16(1):45-56. Giacomo PM, Erik BJ, Onelia TB, Katherine FJ, Thomas C, Aquiles NICHOLS, Yaron PA, Delfina VA, Deandre J, Beulah RB, MJ, [...] TC, Dwaine CR, Emre Amaya, editors. [place]. [place] ([place]): [employer]; 2008. Available at www.ncbi.nlm.nih.gov/books/IIK6355. [Online] Updated Apr 19, 2007. Online Mendelian Inheritance in Man, OMIM. [facility], Hillman, MD. Cystic fibrosis transmembrane conductance regulator; CFTR. LAYLA Number: *[id number]: 11/28/2013: World Wide Web URL: http://omim.org/ The Clinical and Functional Translation of CFTR (CFTR2). Available at http://www.cftr2.org/ [Online] MS Jesus, Aquiles NICHOLS, hTeron POSEY, Kayleigh HANSON, Jericho Amaya, Ozzy Estrada, Estefany GE, Dorothy BW, Jose R VM, Kerrie EM, MariaE sther CM, Oscar BEEBE, Archana DR, Gladys CAMPBELL. Cystic fibrosis population carrier screenin revision of [place] [employer] Genetics mutation panel. Jessica Med. 2004;6:387-91. Performed By: #### CFNGS #### [facility] [address] [place], [place] [address] PROGRESS Observed: 06/23/2017 Status: COMPLETED Source: ST[place]AL 2:18 PM [facility] REPOSITORY HNO ID: [id number] Author: Jason Nash Service: (none) Author Type: Physician Type: Progress Notes Filed: 06/23/2017 2:20 PM Note Text: Please see ultrasound report for details of this visit. Jason Nash M.D. PROGRESS Observed: 06/03/2017 Status: COMPLETED Source: STENDAL 9:49 AM [facility] REPOSITORY HNO ID: [id number] Author: Shahana Donato Pscherrie Service: (none) Author Type: (none) Type: Progress Notes Filed: 06/03/2017 9:49 AM Note Text: pap logged, letter sent. Shahana Donato Psr EMERGENCY DEPARTMENT Observed: 06/02/2017 Status: F Source: [place] SUMMARY 1:01 AM [facility] REPOSITORY [facility] Medical Records Department [address] [place] [address] Emergency Department Summary 06/01/17 1747 MR#: [id number] Acct: [id number] Name: KATIE JUAREZ Rep #: [id number] : 1985 32 From: Kiersten Segura MD [...] thigh pain This note was generated with [employer] dictation software. It may contain incorrect words, [...] problems, contact your Primary Care Provider. Call [facility] ([phone]) or report to the closest Emergency Room. Call 911 if necessary. 06/02/17 0101 <Electronically signed by Kiersten Segura MD> Date Kiersten Segura MD Cosigner Signature (If Indicated): Date CC: Moisés Lopez MD DISCHARGE INSTRUCTION Observed: 06/01/2017 Status: F Source: JAIR 6:26 PM [facility] REPOSITORY [facility] Medical Records Department [address] [place] [address] Discharge Instruction 06/01/17 1825 MR#: [id number] Acct: [id number] Name: KATIE TURNER Rep #: [id number] : 1985 32 From: Kiersten Segura MD [...] your Primary Care Provider. Call [facility] ([phone]) or report to the closest Emergency Room. Call 911 if necessary. 06/01/17 1826 <Electronically signed by Kiersten Segura MD> Date Kiersten Segura MD Cosigner Signature (If Indicated): Date CC: Moisés Lopez MD VENOUS DUPLEX Observed: 06/01/2017 Status: F Source: [place] IMAG/LIMITED/UNI 5:52 PM [facility] REPOSITORY [facility] Imaging Services [address] [place] [address] Venous Duplex Imag/Limited/Uni MR#: [id number] Acct: [id number] Name: KATIE JUAREZ Rep #: [id number] : 1985 F 32 From: Girish Cedeno DO PCP: Moisés Lopez MD Status: [facility] ER Study: Venous Duplex Imag/Limited/Uni Date of Exam: 06/01/17 Exam# [id number] Ordering Dr: Kiersten Segura MD STUDY: VENOUS [...] Girish Cedeno DO at 18:39 EDT Tel [phone], Service support , CC: Kiersten Segura MD; Moisés Lpoez MD Sports Medicine Coordinator: Signed PROGRESS Observed: 06/01/2017 Status: COMPLETED Source: STENDAL 5:04 PM [facility] REPOSITORY HNO ID: [id number] Author: Pierre Elias) Mundo Service: (none) Author Type: Physician Chief Hydroelectric Station Operator Type: Progress Notes Filed: 06/01/2017 5:21 PM [...] anesthesia - Other acne Current Outpatient Prescriptions: Splwktqg-Nz-Uxb-Fe-FA ( VITAMIN) tab Take 1 tablet by [...] she was agreeable with going over to [facility] ED immediately from here. MARÍA ELENA Shah Observed: 06/01/2017 Status: COMPLETED Source: STENDAL 5:00 PM [facility] REPOSITORY Office Visit (RUSTTR) KATIE JUAREZ ([id number]) 1985 F CHT Date Time Provider Department 06/01/17 5:00 PM [facility] UCWSTR During your visit today, we recorded [...] anesthesia - Other acne Current Outpatient Prescriptions: Zfrxkpyr-Vo-Mgo-Fe-FA ( VITAMIN) tab Take 1 tablet by [...] she was agreeable with going over to [facility] ED immediately from here. Pierre Perry PA-C [...] on 06/01/17 Observed: 05/24/2017 Status: F Source: [place]AL URINE CULTURE 2:00 PM [facility] REPOSITORY Culture Result - <10,000 CFU/ml Normal urogenital conrad Performed By: #### URCUL #### [facility] [address] [place], [place] [address] CBC Collected: 05/24/2017 Status: F Source: ST[place]AL 11:11 AM [facility] REPOSITORY TYPE CODE TESTS RESULT OUT OF [...] #### CBC, SYPHGX, HBSAG, HIV12C, RUBIGG #### [facility] [address] [place], [place] [address] SYPHILIS IGG WITH Collected: 05/24/2017 Status: F Source: [facility] 11:11 AM [facility] REPOSITORY TYPE CODE TESTS RESULT OUT OF [...] #### CBC, SYPHGX, HBSAG, HIV12C, RUBIGG #### [facility] [address] [place] [address] HEPATITIS B SURF. AG Collected: 05/24/2017 Status: F Source: [place] 11:11 AM [facility] REPOSITORY TYPE CODE TESTS RESULT OUT OF REFERENCE UNITS RANGE LAB HBSAG Negative Hepatitis B Negative Surf. Ag Performed By: #### CBC, SYPHGX, HBSAG, HIV12C, RUBIGG #### [place] [address] [place] [address] HIV 12 COMBO (AG/AB) Collected: 05/24/2017 Status: F Source: ST[place]AL 11:11 AM [facility] REPOSITORY TYPE CODE TESTS RESULT OUT OF REFERENCE UNITS RANGE LAB HVAGAB Non Reactive HIV Non Reactive 12 Ag/Ab Result Comment: (NOTE) HIV Information: [place] Rev. Code 3701.243(E): This information has been [...] #### CBC, SYPHGX, HBSAG, HIV12C, RUBIGG #### [facility] [address] [address] RUBELLA IGG ANTIBODY Collected: 05/24/2017 Status: F Source: ST[place]AL 11:11 AM [facility] REPOSITORY TYPE CODE TESTS RESULT OUT OF [...] #### CBC, SYPHGX, HBSAG, HIV12C, RUBIGG #### [facility] [address] [place], [place] [address] TOXICOLOGY SCREEN,UR Collected: 05/24/2017 Status: F Source: [place] 11:11 AM [facility] REPOSITORY TYPE CODE TESTS RESULT OUT OF [...] the same speci men through Client Services ([phone]) if contacted within 48 hours of initial testing. [1]Substance Abuse and Mental Health Services Administration (2012). Clinical Drug Testing in Primary Care Technical Assistance Publication Series 32. Department of Health and Human Services, [place], p.10. These tests were developed and their performance characteristics determined by [facility]'s [facility] [place] ( [facility]). They have not been cleared or a pproved by the FDA. [facility] is regulated under CLIA as qualified to perform high complexity testing. These tests are used for clinical purposes. They should not be regarded as investigational or for research. Performed By: #### UTOX2 #### [facility] [place] [address] 50G, 1HR GEST. Collected: 05/24/2017 Status: F Source: [facility] 11:11 AM [facility] REPOSITORY TYPE CODE TESTS RESULT OUT OF REFERENCE UNITS RANGE LAB GLUP 74-134 mg/dL Glucose 106 Screen, Preg Result Comment: [place] Congress of Obstetricians and Gynecologists (Woods/Coustan) guidelines state a gestational diabetes mellitus positive screen is made, in women not previously diagnosed with overt diabetes, when the 1 hr plasma glucose level is equal to or above 140 mg/dL. The [facility] Environmental Engineer Scientist and [facility] [place] recommends a 135 mg/dL cutoff. Performed By: #### GLTGST #### [place] [address] TYPE AND SCR,PRENATL Collected: 05/24/2017 Status: F Source: [place] 11:11 AM [facility] REPOSITORY TYPE CODE TESTS RESULT OUT OF REFERENCE UNITS RANGE LAB %ABR A ABO/RH(D) POSITIVE LAB % Antibody NEG Screen Performed By: #### TSPN #### [place] [id number] GC/CHLAMYDIA AMPLIF Collected: 05/24/2017 Status: F Source: [place] 10:35 AM [facility] REPOSITORY TYPE CODE TESTS RESULT OUT OF REFERENCE UNITS RANGE LAB GCCTSR GC/Chlam Amp Cervix Source LAB GCAMPL GC Negative Amplification for Neisseria gonorrhoeae by amplification. LAB CLAMPL Chlamydia Negative Amplif for Chlamydia trachomatis by amplification. Performed By: #### GCCT #### [facility], [place] [address] HPV W/GENOTYPE Collected: 05/24/2017 Status: F Source: [place]AL 10:35 [facility] REPOSITORY TYPE CODE TESTS RESULT OUT OF [...] developed and its performance characteristics determined by [facility]'s [facility] Pathology and Laboratory [facility] [place] ([facility]). It has not been cleared or approved by the FDA. -[facility] is regulated under CLIA as qualified to perform high-complexity testing. This test is used for clinical purposes. It should not be regarded as inv estigational or for research. Performed By: #### HPVHRR #### [facility] [address], [place] [address] CYTOLOGY Observed: 05/24/2017 Status: C Source: [place]AL 10:35 [facility] REPOSITORY ADDITIONAL PROCEDURES PRESENT Specimen originated from [facility] Specimen #: [id number] Submitting Physician: LASHON DALAL MD SPECIMEN SUBMITTED [...] from every slide are reviewed by a orchard pruner. SIERRA Nichols(ASCP) (Electronic Signature) ADDITIONAL PROCEDURE(S) HUMAN PAPILLOMA VIRUS Date Ordered: 05/25/2017 Date Reported: 05/26/2017 Procedure Results and Interpretation Negative for HPV DNA high risk type 16 by PCR. Negative for HPV DNA high risk type 18 by PCR. Negative for HPV DNA high risk types: 31,33,35,39,45,51,52,56,58,59,66,68 by PCR. This test was developed and its performance characteristics determined by [facility] [place] ([facility]). It has not been cleared or approved by the FDA. [facility] is regulated under CLIA as qualified to perform high-complexity testing. This test is used for clinical purposes. It should not be regarded as investigational or for research. CLINICAL DATA ROUTINE EXAM, HPV Testing: Yes, automatic HPV patients over 30 Date of Last Menstrual Period: 03/09/2017 Menstrual History: STAINS A: CERVICAL, SCREENING, FLUID THIN PREP SBA BUSINESS DEVELOPMENT OFFICER Cyndi Pérez M.D., Economist Research Assistant Date of Report: 06/02/2017 Date of Procedure: 05/24/2017 Date of Receipt: 05/25/2017 Submitted by: LASHON DALAL MD Location: [facility] Diagnostic interpretation performed at [facility], [address] [place] [address]. The Pap Smear is a screening test for cervical cancer. False negative results occur with all screening tests, emphasizing the need for rescreening at recommended intervals, and clinical correlation. PROGRESS Observed: 05/24/2017 Status: COMPLETED Source: STENDAL 9:59 AM [facility] REPOSITORY HNO ID: [id number] Author: Lashon Dalal Service: (none) Author Type: [...] No Multivitamin with Folic acid: Yes Occupation: [employer] Advent or heritage: No Would refuse blood transfusion [...] Outpatient Prescriptions on File Prior to Visit: Uaxopllp-Xa-Boz-Fe-FA ( VITAMIN) tab Take 1 tablet by [...] MD CNNURSE Observed: 05/21/2017 Status: COMPLETED Source: [place] 11:00 AM [facility] REPOSITORY Nurse Visit (WOOB) KATIE JUAREZ ([id number]) 1985 F T Date Time Provider Department 3/23/18 11:00 AM NURSE TYLOR [facility] LINDSEY REARDON During your visit today, we recorded the following information about you: Last Period 03/09/17 Sarabjit Carrion RN 05/21/2017 11:36 AM Signed SEQUENTIAL SCREENINGS The [facility] offers sequential screenings for women who are [...] It will require an appointment with our recycling technician. This is not an ultrasound performed [...] the above symptoms, contact our office at [phone] and ask to speak with a nurse. After hours, you can call doctors registry at [phone] OR call [facility] at [phone] and ask to have the doctor avionics mechanic paged. If you consider this an emergency, [...] treatment is particularly effective in young patients-the [facility] Cord Blood Bank reports a 70 percent [...] issues. What do the experts say? The [place] [employer] encourages philanthropic blood banking [...] baby needs at the moment. The nurse, account support manager, or physician will then label the samples, [...] AHEAD OF TIME! Public cord-blood gupta--DONATION: [employer] [phone] [facility] Placental Blood Program, [facility] Umbilical Cord Blood Bank, Private cord-blood gupta--SAVING FOR YOUR OWN USE: Cryo-Cell [employer], (I think this is the least expensive) [employer] [phone] [employer], ([phone]) [employer] [place] Cord Blood Bank, [phone] [phone] Cells, [phone] [place] Cryobank, Cord Blood Registry, ([phone]) CORDBLOOD [employer], An Internet search may provide [...] requested diagnostic testing [Z01.89] Order(s):TA PT ED VOCATIONAL AUTO BODY INSTRUCTOR [] Order #: [id number]: 1 FUTURE TA PT ED ANESTHESIA [[id number]] Order #: [id number]: 1 FUTURE TA PT ED VOCATIONAL AUTO BODY INSTRUCTOR [] Order #: [id number]: 1 FUTURE TA WHAT TO EXPECT DURING YOUR HOSPITAL STAY [] Order #: [id number]: 1 FUTURE TA PT ED VOCATIONAL AUTO BODY INSTRUCTOR [] Order #: [id number]: 1 FUTURE TA PT ED VOCATIONAL AUTO BODY INSTRUCTOR [] Order #: [id number]: 1 FUTURE TA PT ED VOCATIONAL AUTO BODY INSTRUCTOR [] Order #: [id number]. #:[id number]: 1 TA PT ED ANESTHESIA [[id number]] Order #: [id number]. #:[id number]: 1 TA PT ED VOCATIONAL AUTO BODY INSTRUCTOR [] Order #: [id number]. #:[id number]: 1 TA WHAT TO EXPECT DURING YOUR HOSPITAL STAY [] Order #: [id number]. #:[id number]: 1 TA PT ED VOCATIONAL AUTO BODY INSTRUCTOR [] Order #: [id number]. #:[id number]: 1 TA PT ED VOCATIONAL AUTO BODY INSTRUCTOR [] Order #: [id number]. #:[id number]: 1 Prescriptions as of 05/21/2017 Sig: VITAMIN,CALCIUM,MINE* [...] instructions from your clinician: SEQUENTIAL SCREENINGS The [facility] offers sequential screenings for women who are [...] It will require an appointment with our recycling technician. This is not an ultrasound performed [...] the above symptoms, contact our office at [phone] and ask to speak with a nurse. After hours, you can call doctors registry at [phone] OR call [facility] at [phone] and ask to have the doctor avionics mechanic paged. If you consider this an emergency, [...] is particularly effective in young patients- the [facility] Cord Blood Bank reports a 70 percent [...] issues. What do the experts say? The [place] [employer] Pediatrics encourages philanthropic blood banking [...] baby needs at the moment. The nurse, account support manager, or physician will then label the samples, [...] AHEAD OF TIME! Public cord-blood gupta--DONATION: [employer] [phone] [facility] Placental Blood Program, [facility] Umbilical Cord Blood Bank, Private cord-blood gupta--SAVING FOR YOUR OWN USE: Cryo-Cell [employer], (I think this is the least expensive) [employer]Bank [phone] [employer], (729) [employer] [place] Cord Blood Bank, [phone] 700-CORD Cells, [phone] [place] Cryobank, Cord Blood Registry, ([phone]) CORDBLOOD [employer], An Internet search may provide you with additional listings. Disposition: Return in 3 days (on 05/24/2017) for New OB with Dr Dalal. Follow-up and Disposition History Recorded Letter Text Dear Katie Juarez: How to activate your [facility] [employer] Account 1. Visit the [employer] Signup page at [email or web address] 2. Identify yourself using your one-time use activation code: [email or web address] 3. Follow the on-screen prompts to choose [...] information on the Identify Yourself Form at [email or web address] , click Next. Create your login and password, choose a [employer] ID and password that will be easy for you to use, but impossible for anyone else to guess. Pick a security question that will assist you in the event you forget your password the next time you log-on. If you have difficulty activating your account, please call our [employer] helpline at [phone] or toll free at . We hope you enjoy using [employer]! Kindest Regards, [facility] [employer] Team Encounter Status:Closed by SARABJIT CARRION RN on 05/21/17 ALLERGIES ALLERGIES DATE TYPE / NAME / CODE REACTION SEVERITY SOURCE CODE 03/21/2018 Drug hydrocodone/[id number] Upset Stomach Unknown Jair Allergy/41 4(RXNORM) Community [id number]([facility]) Repository 03/21/2018 Drug oxycodone/[id number]( Angioedema Unknown Jair Allergy/41 RXNORM) Community [id number]([facility]) Repository 03/21/2018 Drug acetaminophen/L504521 Angioedema Unknown [place] Allergy/41 605(RXNORM) Community 6692853([facility]) Repository 03/21/2018 Drug pseudoephedrine/F0060 Upset Stomach Unknown [place] Allergy/41 11047(RXNORM) Community 0810007([facility]) Repository 03/21/2018 Drug meperidine/P682531400 Angioedema Unknown Jair Allergy/41 (RXNORM) Community 2306656([facility]) Repository 05/24/2017 DRUG/44537 HYDROCODONE-ACETAMINO GI UPSET [place] 1003([facility]) [place] Repository 05/23/2012 DRUG MEPERIDINE SWELLING [place] INGREDI/41 Clinic Main [id number]([facility]) Repository 05/23/2012 DRUG/72839 OXYCODONE-ACETAMINOPH SWELLING [place] 1003([facility] D CT) [place] [facility] 03/02/2006 DRUG PSEUDOEPHEDRINE HCL SHORTNESS OF [place] INGREDI/[facility] Main [id number]([facility]) Repository ENCOUNTERS ENCOUNTERS ADMIT/DISCHARGE ACCOUNT ADMITTING ENCOUNTER LOCATION SOURCE NUMBER CLASS 03/23/2018 [id number] Ambulatory [facility] ing:MTRAD Repository 03/21/2018/03/22/19 [id number] Emergency [address] ing:ED Repository 02/24/2018/02/25/20 [id number] Emergency [address] Other [place] [facility] 02/23/2018/02/26/20 [id number] Ambulatory [place] [facility] Main [place] [facility] 02/18/2018/02/26/20 [id number] Ambulatory [place] [facility] Main [place] [facility] 02/14/2018/02/17/20 [id number] Ambulatory [place] [facility] Main [place] [facility] 01/07/2018/01/10/20 [id number] Kristenrashaun Stephanie Inpatient [address] ing:WPRoom: Repository [id number]: 1 01/03/2018/01/05/20 [id number] Ambulatory [place] [facility] Main [place] [facility] 12/29/2017/12/31/19 [id number] Ambulatory [place] [facility] Main [place] [facility] 12/20/2017/12/22/19 [id number] Ambulatory [place] [facility] Main [place] [facility] 12/14/2017 [id number] Ambulatory [facility] ing:HW Repository 12/13/2017/12/15/19 [id number] Ambulatory [place] [facility] Main [place] [facility] 11/30/2017/12/03/19 [id number] Ambulatory [place] [facility] Main [place] [facility] 11/17/2017/11/18/19 [id number] Ambulatory [place] [facility] [place] [facility] 11/03/2017/11/07/19 [id number] [facility]ulatory [place] [facility] [place] [facility] 10/20/2017/10/21/19 [id number] [facility]ulatory [place] [facility] [place] [facility] 10/20/2017/10/22/19 [id number] Ambulatory [place] [facility] [place] [facility] 10/18/2017/10/19/19 [id number] Ambulatory [place] [facility] [place] [facility] 10/18/2017/10/20/19 [id number] [facility]ulatory [place] [facility] [place] [facility] 09/22/2017/09/24/19 [id number] Ambulatory [place] [facility] Main [place] [facility] 09/17/2017/09/21/19 [id number] Ambulatory [place] [facility] Main [place] [facility] 09/15/2017/09/17/19 [id number] Ambulatory [place] [facility] [place] [facility] 08/16/2017/08/18/19 [id number] Ambulatory [place] [facility] [place] [facility] 08/16/2017/08/19/19 [id number] Ambulatory [address] Main [place] [facility] 07/29/2017 [id number] Ambulatory [facility] Main [place] [facility] 07/20/2017/07/21/19 [id number] Ambulatory [place] [address] [facility] Main [place] [facility] 06/23/2017/06/24/19 [id number] Ambulatory [address] Main [place] [facility] 06/23/2017/06/24/19 [id number] Ambulatory [address] Main [place] [facility] 06/23/2017/06/26/19 [id number] Ambulatory [address] Main [place] [facility] 06/01/2017/06/02/19 [id number] Emergency Jair Jair [address] [place] [address] ing:ED Repository 06/01/2017/06/03/19 [id number] Ambulatory [address] Main [place] [facility] 05/24/2017/05/25/19 [id number] Ambulatory [address] Main [place] [facility] 05/24/2017/05/25/19 [id number] Ambulatory [address] Main [place] [facility] 05/21/2017/05/26/19 [id number] Ambulatory [address] Main [place] [facility] PAYERS PAYERS ENCOUNTER GUARANTOR PAYER SUBSCRIBER SOURCE 03/23/2018 KATIE Estrada Primary KATIE Estrada Jair [id number] Insurance:ANTHEMPolic MAPESDOB: [facility] [place] y [place]: [id number] [id number] Repository [address]Iry: 419) Date:3700-40-76ZL [phone] () [id number], [place] [address]TH: 03/23/2018 Secondary NOT GIVENUNK [place] Insurance:SELF PAY [facility] Number: Effective Repository Date:2018-03-23 03/21/2018 KATIE Estrada Primary KATIE Thorneoster [id number] Insurance:ANTHEMPolic MAPESDOB: [facility] [place] y Number: [id number], [place] [id number] Repository [address]Vbm: ([phone]) Date:9226-64-17CC [phone] () [id number] MCCLAIN [address]EI: 03/21/2018 Secondary NOT GIVENUNK [place] Insurance:SELF PAY [facility] Number: Effective Repository Date:2018-03-21 01/07/2018 KATIE M Primary KATIE M [place] [id number] Insurance:ANTHEMPolic MAPESDOB: Community [facility] y Number: [id number], [place] [id number] Repository [address]Drk: ([phone]) Date:8904-01-69AV [phone] () [id number], [place] [address]HQ: 01/07/2018 Secondary NOT GIVENUNK [place] Insurance:SELF PAY [facility] Number: Effective Repository Date:2018-01-06 12/14/2017 KATIE M Primary NOT GIVENUNK Jair [id number] Insurance:SELF PAY [place] Number: Effective Repository [phone]: ([phone]) Date:2017-12-07 [phone] () 06/01/2017 KATIE M Primary KATIE M [place] [id number] Insurance:ANTHEMPolic MAPESDOB: [facility] y Number: [id number] [id number] Repository [address]Lia: ([phone]) Date:7310-20-51XN [phone] () [id number], [place] [address]ZC: 06/01/2017 Secondary NOT GIVENUNK Jair Insurance:SELF PAY [facility] Number: Effective Repository Date:2017-06-01
== END ==
PROVIDERS: Family Provider Family Medicine; PCP Family Medicine; Referring Provider Family Medicine; Visit Provider Family Medicine
DX: M54.10 Radiculopathy, site unspecified (principal)
CPT/HCPCS: 72110

== ENCOUNTER 2018-05-02 07:43 | Emergency (ER) | payer BC, SELFPAY ==
[2018-05-02 07:45] VITALS: BP 118/70; PULSE 74; RESP 30; TEMP 36.2; BMI 36.6
--- NOTE | 2018-05-02 08:23 | ED.DCSUM_ITS ---
- ER Visit Summary Date of Service: 05/02/18 Chief Complaint: Acute on chronic left lower back pain History of Present Illness: The patient is a 33 F known history of degenerative disc disease in lower back. With a prior discectomy. Patient states she has had increasing back pain over the last 3 months it comes and goes waxes and wanes. She states she has had an MRI showing an L5-S1 disc protrusion. She is waiting to get in to see a spine surgeon. She states yesterday and today she is had increasing pain in her left lower back radiating down her left buttock and left leg. Worse with movement. She denies any fevers fall or trauma. She denies any bowel or bladder incontinence. She denies any left leg weakness. She denies any fever. Physical Examination: Young female complaining of pain lying on her left side in bed. Vital signs are stable. She is afebrile. H EENT exam unremarkable. Neck nontender. Lungs clear to auscultation bilaterally. Heart regular rhythm no murmur. Abdomen soft and nontender. Remedies moves all 4. Neurovascular intact. She has 5 out of 5 dorsi and plantar flexion of both feet. Normal sensation. No cauda equina. No saddle anesthesia. She is a positive straight leg raise on the left about 15 degrees. Negative on the right. Back exam spine is nontender she has tenderness on the left paraspinal lower lumbar spine region. There is no ecchymosis or bruising. No redness or warmth. Has a prior well-healed surgical incision. Neurologically she is awake alert with no focal motor or sensory deficits. Test Results: None Emergency Department Course and Treatment: Patient treated with IM Toradol, IM Dilaudid and p.o. prednisone. She will be discharged home. Follow-up with your pain management doctor. And her spine surgeons. Treatment Plan: Prednisone daily for 1 week. Follow-up with pain management. Disposition: Discharge Impression: Acute on chronic low back pain with left leg radiculopathy History of L5-S1 disc herniation This note was generated with [employer] software. It may contain incorrect words, spelling, and punctuation that were not noted in review of the chart prior to signing ED Disposition - Plan for ED Patient: Referrals: Harish Lopez MD [Primary Care Provider] -
--- NOTE | 2018-05-02 08:23 | ED.DEP ---
ED Disposition - Plan for ED Patient: Disposition: Home or Assisted Living Instructions: ED Sciatica Prescriptions: Prednisone [Deltasone] 40 mg PO DAILY 7 Days tab Referrals: Harish Lopez MD [Primary Care Provider] - As soon as possible Additional Instructions: Prednisone daily. Call follow-up your pain management doctor for further narcotic pain prescriptions. Follow-up with a spine surgeon as soon as possible.
[2018-05-02] MEDS: predniSONE 20 MG Tablet 60 MG PO (08:49)
[2018-05-02] MEDS: Ketorolac 60 MG/2 ML Vial IM (08:49)
[2018-05-02] MEDS: HYDROmorphone 1 MG/ML Syringe IM (08:50)
[2018-05-02 08:53] VITALS: RESP 20
== END 2018-05-02 09:39 | disposition home or self-care (01) ==
PROVIDERS: Emergency Provider Emergency Medicine; Family Provider Family Medicine; PCP Family Medicine
DX: M51.17 Intervertebral disc disorders with radiculopathy, lumbosacral region (principal); G89.29 Other chronic pain; Z98.1 Arthrodesis status
CPT/HCPCS: 96372; 99282

== ENCOUNTER → 2018-07-12 09:36 | Outpatient (CLI) | payer BC, SELFPAY ==
[2018-07-12 09:22] VITALS: BMI 36.6
--- NOTE | 2018-07-12 09:37 | RAD_ITS ---
STUDY: X-RAY - LUMBAR SPINE REASON FOR EXAM: Female, 33 years old. Lower back pain. TECHNIQUE: 4 view(s) of the lumbar spine were obtained. COMPARISON: None FINDINGS: Normal lumbar lordosis. There is a mild dextroscoliosis with convexity to the L1-2 disc space. There is a normal alignment of the vertebrae. There is no alteration of alignment with flexion or extension. There is minimal disc space narrowing and endplate spondylosis at L5-S1 There is no evidence of acute fracture or loss of vertebral axial height. The soft tissue structures are unremarkable. RAD/L/S Spine Min 4 Views IMPRESSION: Scoliosis without evidence of vertebral instability. There is stable mild degenerative changes at L5-S1. Electronically Signed: Jose Juan Childs DO at 17:49 EDT Tel [phone], Service support ,
--- NOTE | 2018-07-12 10:29 | RAD_ITS ---
STUDY: X-RAY - CERVICAL SPINE REASON FOR EXAM: Female, 33 years old. Pain. TECHNIQUE: 4 view(s) of the cervical spine were obtained. COMPARISON: None FINDINGS: Normal anterior atlantoaxial articulation. Normal odontoid process. There is straightening of the normal cervical lordosis. Normal vertebral bodies and endplates. Normal disc space heights. There is no evidence of acute fracture or loss of vertebral axial height. There is normal alignment which is does not alter with flexion or extension. The soft tissue structures are unremarkable. RAD/Cerv Spine 4 or 5 Views IMPRESSION: Flattened cervical lordosis. The cervical spine is otherwise grossly normal. Electronically Signed: Jose Juan Childs DO at 19:01 EDT Tel [phone], Service support ,
== END ==
PROVIDERS: Family Provider Family Medicine; PCP Family Medicine; Referring Provider Orthopaedic Surgery; Visit Provider Orthopaedic Surgery
DX: M54.12 Radiculopathy, cervical region (principal); M54.16 Radiculopathy, lumbar region
CPT/HCPCS: 72050; 72110

== ENCOUNTER 2018-08-10 15:30 | Outpatient (RCR) | payer BC, SELFPAY ==
--- NOTE | 2018-07-07 16:43 | HP.PTEVAL ---
Patient's Visit Information DILIP MORELOS is a 33 year old F referred to Physical Therapy by Wilmer Kerr MD with a diagnosis of LBP. Date of Evaluation: 07/05/18 Physical Therapist: Steven Hughes, PT, ATC - Visit Plan Frequency: 2x /Week Duration: 2-4 Weeks Plan: Postural edu, REIL, core stab ex's, L LE strengthening, and HEP - Subjective Findings: Pt reports she herniated a disc in LB and had to have a discectomy performed which did fix the injury at the age of 17. Pt reports in 02/24/18, she reinjured the same disc as she was and had her baby. Pt reports her baby is now 20#, and she is not able to take care of him because of her LB. Pt did have a LB injection on April that kept her out of the ER at that time. Pt reports she is still waiting on her second injection. Pt reports she is in a lot of pain today. Sleep difficulty secondary to pain. Pt reports she is limited with all IADL's secondary to pain. Pt reports she has had PT in the past which did not make a sig difference, 4/10 pain at rest, 10/10 at worst - Pain Low back Pain Intensity (Out of 10): 4 Pain Intensity Range: 10 - Objective Neuro: B LE sensation is WNL to light touch. B patellar reflex= 2/3. MMT: L LE is grossly 3+/5 throughout. R LE is 5/5 throughout. ROM: Pt is moderately limited with L/S extension ROM. All other movements are WNL. Repeated movements: RFIS 10x3 increased pain, ZOYA NE, REIL 10x2 NE - Goals Goal 1:: Decrease LBP x 50% to aid with sleep Goal Time Frame: 2-4 Weeks Goal 2:: Increase L LE strength x 1 grade to aid with stair negotiation Goal Time Frame: 2-4 Weeks Goal 3:: I with HEP Goal Time Frame: 2-4 Weeks - Rehabilitation Potential Physical Therapy Diagnosis: LBP, L LE weakness, and core instability secondary to core weakness Rehabilitation Potential: Good - Anticipated Interventions Patient/Client Instruction: Educate patient on: Condition, Plan of Care For the Purpose of:: To improve self management Therapeutic Exercise to Include: Strength training, Body mechanics, Postural training, Dynamic Lumbar Stabilization, Garrick Exercises For the Purpose of:: To decrease pain, To increase ROM, To improve muscle performance and motor function Cryotherapy (ice pack, ice massage): Yes Thermo therapy (hot pack): Yes For the Purpose of:: To decrease pain Thank you for the opportunity to evaluate your patient. For Medicare and Medicare HMO plans, please review the plan of care and approve it. It will need to be FAXED BACK to us at [phone] for Medicare purposes. For Medicare only, by signing this I certify the plan of care. Please let me know if there are questions or concerns regarding this plan of care. Physician Signature: Date:
--- NOTE | 2018-11-25 12:11 | HP.PTDCSUM ---
HP - PT D/C Summary It has been my pleasure to treat DILIP MORELOS under orders from Wilmer Kerr MD, for the diagnosis of LBP for a total of 11 visit(s). Discharge Date: Please see the following information for a summary of their discharge status. - Subjective Subjective: Pt reports she had an injection since she last saw me. No significant improvements - Pain Low back Pain Intensity (Out of 10): 6 LLE Pain Intensity (Out of 10): 2 - Overall Improvement % Improvement: 20 - Objective Objective/Function: Pt's LBP and L LE strength are relatively unchanged at this time. Pt has made little to no improvements. - Goals Goal 1:: Decrease LBP x 50% to aid with sleep Goal Progress: Not Progressing Goal 2:: Increase L LE strength x 1 grade to aid with stair negotiation Goal Progress: Not Progressing Goal 3:: I with HEP Goal Progress: Goal Met - Plan Plan: Discontinue at this time and RTD - D/C Information If there are questions or concerns regarding this patient's physical therapy, please feel free to call me at [phone]. Thank you for the referral of this patient. Sincerely, Steven Hughes, PT, ATC
== END 2018-08-10 19:00 | disposition home or self-care (01) ==
LOC: PT 15:30
PROVIDERS: Family Provider Family Medicine; PCP Family Medicine; Referring Provider Neurological Surgery; Visit Provider Neurological Surgery
DX: M48.061 Spinal stenosis, lumbar region without neurogenic claudication (principal); R29.898 Other symptoms and signs involving the musculoskeletal system; M54.5 Low back pain; M54.16 Radiculopathy, lumbar region
CPT/HCPCS: 97110; 97113; 97161; 97530

== ENCOUNTER → 2018-08-13 06:56 | Outpatient (CLI) | payer BC, SELFPAY ==
[2018-07-12 09:22] VITALS: BMI 36.6
--- NOTE | 2018-08-13 07:28 | MRI_ITS ---
HISTORY:LBP, radiculopathy down left leg, weakness and numbness. Prior surgery@ L5-S1 in 2013 LBP, radiculopathy down left leg, weakness and numbness. Prior surgery@ L5-S1 in 2013 EXAMINATION: MR Spine Lumbar WO/W Contrast TECHNIQUE: Multiplanar and multisequence MR images of the lumbar spine. IV Contrast dosage and agent: 20 cc of dotarem COMPARISON: Radiographs obtained of the lumbar spine on July 12, 2018 FINDINGS: VERTEBRAE: Vertebral body heights are preserved. Normal vertebral bodies and posterior elements. There are Schmorl's nodes seen from the level of L1-L3 4 VERTEBRAL ALIGNMENT: No spondylolisthesis. There is preservation of the normal lumbar lordosis. CORD: Normal position and signal intensity of the conus medullaris. SOFT TISSUES: Unremarkable. L1/L2: Normal disc height and morphology. Normal spinal canal, lateral recesses and neuroforamina. L2/L3: Normal disc height and morphology. Normal spinal canal, lateral recesses and neuroforamina. L3/L4: There is a diffuse annular bulge. No evidence of canal stenosis. Mild right neural foraminal narrowing without evidence of nerve root impingement L4/L5: There is a diffuse annular bulge. There is a central disc protrusion effacing the ventral thecal sac. Ligamentum flavum hypertrophy. There is also mild subarticular recess narrowing. The canal is narrowed to approximately 8.7 mm. The thecal sac is flattened and measures 6 mm at this level L5/S1: Posterior osteophytes and it diffuse annular bulge. There is a central disc protrusion that does efface the ventral thecal sac. This also abuts the bilateral S1 nerve. This as they exit the thecal sac. There is subarticular recess narrowing also noted at this level. There is mild bilateral upper/down neural foraminal narrowing but no significant impingement of the L5 nerve canal is narrowed to proximal 9 mm at this level MRI/Spine Lumbar W/WO Contrast IMPRESSION: L3-4 diffuse annular bulge with mild right neural foraminal narrowing with no nerve impingement L4-5 diffuse bulge with central disc protrusion effacing the ventral thecal sac. The canal is narrowed to approximately 8.7 mm and the thecal sac is flattened measures 6 mm. L5-S1 central disc protrusion. This is efface the ventral thecal sac and abuts the bilateral S1 nerve roots as they leave the sac. No impingement on the L5 nerve roots. There is subarticular recess narrowing at this level. The canal is narrowed to approximately 9 mm at this level at 2322 Reported and signed by: Donya Blum DO Electronically Signed: Donya Blum DO at 23:21 EDT Tel , Service support ,
--- NOTE | 2018-08-13 07:28 | MRI_ITS ---
HISTORY:neck pain, numbness in arms and hands since 04/2018 neck pain, numbness in arms and hands since 04/2018 TECHNIQUE: Routine MRI of the cervical spine was performed. IV Contrast dosage and agent: COMPARISON: Radiographs of the cervical spine obtained on July 12, 2018 FINDINGS: # of images incl. paperwork: 260 The visualized portion of the posterior fossa appears within normal limits VERTEBRAE: Normal vertebral bodies and posterior elements. VERTEBRAL ALIGNMENT: Normal, including the craniocervical junction and cervicothoracic junction. No spondylolisthesis. Straightening the normal cervical lordosis CORD: Unremarkable in signal and morphology. NECK SOFT TISSUES: No prevertebral soft tissue swelling. There is no cervical adenopathy. C2/C3: Normal disc height and morphology. Normal central canal and neuroforamina. C3/C4: Normal disc height and morphology. Normal central canal and neuroforamina. C4/C5: Normal disc height and morphology. Normal central canal and neuroforamina. C5/C6: There is a left central disc protrusion effacing the ventral thecal sac. This measures approximately 1.4 mm AP and is seen in image 69 series 7. This does not abut the spinal cord. No significant canal stenosis or neural foraminal narrowing C6/C7: Normal disc height and morphology. Normal central canal and neuroforamina. C7-T1:Disc height and hydration are preserved. There is no evidence of disc contour abnormality or canal stenosis. No evidence of neural foraminal narrowing. MRI/Spine Cervical (Routine) IMPRESSION: Minimal left central disc protrusion at the level of C5-6 with no evidence of canal stenosis or neuroforaminal narrowing Straightening of normal cervical lordosis at 2305 Reported and signed by: Donya Blum DO Electronically Signed: Donya Blum DO at 23:04 EDT Tel , Service support ,
== END ==
PROVIDERS: Family Provider Family Medicine; PCP Family Medicine; Referring Provider Orthopaedic Surgery; Visit Provider Orthopaedic Surgery
DX: M54.12 Radiculopathy, cervical region (principal); M54.16 Radiculopathy, lumbar region
CPT/HCPCS: 72141; 72158; A9575

== ENCOUNTER → 2018-08-16 11:00 | Outpatient (CLI) | payer BC, SELFPAY ==
[2018-07-12 09:22] VITALS: BMI 36.6
[2018-08-16 12:37] LABS: Absolute Lymphocyte Count 2.16 X10^3/ul (0.83-4.51); Absolute Neutrophil Count 8.3 X10^3/uL (2.0-7.7); Basophil# 0.01 X10^3/uL; Basophil% 0.1 % (0-1); Eosinophil# 0.06 X10^3/uL; Eosinophils% 0.5 % (0-5); Hematocrit 42.9 % (37-47); Hemoglobin 13.9 g/dl (12.0-15.0); Lymphocyte # 2.16 X10^3/ul (4.0); Mean Corp Hgb Conc 32.4 g/gl (32-36); Mean Corpuscular Hgb 28.7 pg (27.0-32.0); Mean Corpuscular Volume 88.5 fL (81-99); Mean Platelet Vol. 9.9 fl (6.2-12.0); Monocyte# 0.74 X10^3/uL; Monocyte% 6.5 % (0-10); Neutrophil # 8.34 X10^3/uL (2.7-7.7); Neutrophil % 73.6 % (47-70); Platelet Count 373 K/mm3 (150-450); RBC Distribution Width CV 13.7 % (11.6-14.6); RBC Distribution Width SD 44.1 fl (35.1-43.9); Red Blood Count 4.85 M/mm3 (4.2-5.4); White Blood Count 11.3 K/mm3 (4.4-11.0)
[2018-08-16 12:45] LABS: POSITIVE COUNT NO; POSITIVE DIFFERENTIAL NO; POSITIVE MORPHOLOGY NO
[2018-08-16 13:03] LABS: ALB/GLOB Ratio 0.8 RATIO (0.9-2.4); AST(SGOT) 13 U/L (15-37); Alanine Aminotransfer ALT/SGPT 29 U/L (13-56); Albumin, Serum 3.4 g/dL (3.2-5.0); Alkaline Phosphatase 73 U/L (45-117); Anion Gap 12 (5-15); BUN 10 mg/dL (7-18); BUN/Creat Ratio 15.9 RATIO (10-20); Chloride 107 mmol/L (98-107); Creatinine, Serum 0.63 mg/dL (0.55-1.02); EST Glomerular Filtration Rate 117 mL/min (>60); Est Glom Filt Rate - Afr Amer 142 mL/min (>60); Glucose 87 mg/dL (74-106); Potassium 4.1 mmol/L (3.5-5.1); Protein, Total 7.4 g/dL (6.4-8.2); Sodium Level 141 mmol/L (136-145); Thyroid Stim Hormone (TSH) 0.96 uIU/mL (0.358-3.74)
== END ==
PROVIDERS: Family Provider Family Medicine; PCP Family Medicine; Referring Provider Family Medicine; Visit Provider Family Medicine
DX: Z00.00 Encounter for general adult medical examination without abnormal findings (principal)
CPT/HCPCS: 36415; 80053; 84443; 85025

== ENCOUNTER → 2018-10-04 12:22 | Outpatient (CLI) | payer BC, SELFPAY ==
[2018-09-06 10:30] VITALS: BMI 36.6
--- NOTE | 2018-10-04 12:24 | CT_ITS ---
STUDY: CT LUMBAR SPINE WITH INTRATHECAL CONTRAST (LUMBAR CT MYELOGRAM) REASON FOR EXAM: Female, 33 years old. Back pain. RADIATION DOSAGE (If Supplied By Facility): CTDIvol = ( 23.66 ) mGy, DLP = ( 646.21 ) mGycm TECHNIQUE: Transaxial images were obtained from the L1 vertebra through the S1 vertebrae, following intrathecal administration of 15 ml of Isovue-M 200 contrast material, performed by Dr. Nicolasa FARMER. Please refer to this physicians technical notes for procedural details. Coronal and sagittal reconstructions were obtained. Individualized dose optimization techniques were used for this CT. COMPARISON: None. FINDINGS: Normal lumbar lordosis. There is no substantial scoliosis. Normal vertebrae of the lumbar spine. There is dependent layering of contrast material in the distal thecal sac. The conus medullaris terminates in a normal position at the L1-L2 level. There is no demonstrated cauda equina nerve root abnormality or intraspinal mass. L1-2: Normal endplates. Normal disc height and morphology. Normal bilateral facet joints. Normal central canal and bilateral lateral recesses. Normal bilateral intervertebral neural foramina. L2-3: Normal endplates. Normal disc height and morphology. Normal bilateral facet joints. Normal central canal and bilateral lateral recesses. Normal bilateral intervertebral neural foramina. L3-4: Normal endplates. Normal disc height and morphology. Normal bilateral facet joints. Normal central canal and bilateral lateral recesses. Normal bilateral intervertebral neural foramina. L4-5: Normal endplates. Mild degree of diffuse posterior disc bulge causing minimal deformity of the thecal sac anteriorly. Normal bilateral facet joints. Normal central canal and bilateral lateral recesses. Normal bilateral intervertebral neural foramina. L5-S1: Normal endplates. Normal disc height and morphology. Normal bilateral facet joints. Normal central canal and bilateral lateral recesses. Normal bilateral intervertebral neural foramina. Normal visualized sacroiliac joints. Normal visualized paraspinous soft tissue structures. CT/Spine Lumbar without Contrast IMPRESSION: Minimal degree of diffuse posterior disc bulge at the L4-L5 level causing minimal deformity of the anterior thecal sac. Electronically Signed: Audie Baldwin, at 12:31 EDT , Service support ,
[2018-10-04 12:36] VITALS: BP 142/95; PULSE 89; RESP 16; TEMP 37.2; O2SAT 100; BMI 36.0
--- NOTE | 2018-10-04 12:40 | RAD_ITS ---
PROCEDURE: LUMBAR MYELOGRAM DATE OF EXAMINATION: October 04, 2018. INDICATION: Female, 33 years old. Low back pain. PHYSICIAN: Audie Baldwin M.D. CONSENT: The patient's history and physical findings were reviewed. The lumbar myelogram procedure was discussed with the patient prior to signing a consent. SEDATION: Local anesthesia with 3 mL of 1% lidocaine was used. FLUOROSCOPY TIME (if supplied): (1:29) minutes/seconds Injection Information: Number of images obtained: TECHNIQUE: Digital fluoroscopy was used to identify a safe approach for the lumbar myelogram. The back was prepped and draped in usual fashion. Local anesthesia was utilized. Under fluoroscopic guidance a 22-gauge spinal needle was inserted into the spinal canal at the L2-L3 level. Clear spinal fluid was seen. 15 mL of Isovue 200 M was injected into the spinal canal. There is good opacification of the spinal fluid. The nerve root sheaths are asymmetrically identified. There is no extradural defects. There is narrowing of the CSF column in the lower lumbar spine. A CT scan will follow. RAD/Lumbar Myelogram IMPRESSION: Normal lumbar myelogram. Electronically Signed: Auide Baldwin, at 13:54 EDT , Service support ,
[2018-10-04 13:20] VITALS: BP 137/68; PULSE 77; RESP 16; O2SAT 99
[2018-10-04 15:13] VITALS: BP 166/83; PULSE 98; RESP 16; O2SAT 96
== END ==
PROVIDERS: Family Provider Family Medicine; PCP Family Medicine; Referring Provider Orthopaedic Surgery; Visit Provider Orthopaedic Surgery
DX: M54.16 Radiculopathy, lumbar region (principal)
CPT/HCPCS: 62304; 62284; 72131; 72265; Q9965

== ENCOUNTER 2018-11-24 14:02 | Emergency (ER) | payer BC, SELFPAY ==
[2018-10-25 13:59] VITALS: BMI 36.0
[2018-11-24 14:04] VITALS: BP 163/113; PULSE 107; RESP 16; TEMP 36.6; O2SAT 100; BMI 37.2
--- NOTE | 2018-11-24 14:28 | RAD_ITS ---
STUDY: X-RAY CHEST REASON FOR EXAM: Female, 33 years old. Cough. One-week history of flulike symptoms. TECHNIQUE: PA and lateral views of the chest. COMPARISON: None. FINDINGS: The lungs are clear and expanded. There is no demonstrated pleural abnormality. Normal size heart. Normal mediastinum and sarina. Normal visualized pulmonary arteries. Normal visualized aortic arch and descending thoracic aorta. Normal visualized thoracic spine. Normal visualized ribs, clavicles, and shoulders. There is no demonstrated abnormality of the visualized soft tissue structures of the upper abdomen. RAD/Chest PA and Lateral IMPRESSION: Normal x-ray examination of the chest. Electronically Signed: Audie Baldwin, at 15:52 EDT , Service support ,
[2018-11-24] MEDS: Ketorolac 15 MG/ML Vial IV (15:24)
[2018-11-24] MEDS: Ondansetron 4 MG/2 ML Vial IV (15:24)
[2018-11-24] MEDS: MethylPREDNISolone 125 MG/2 ML Vial IV (15:24)
[2018-11-24] MEDS: 0.9% Normal Saline 1,000 ML 1000 ML IV (15:24)
[2018-11-24 15:48] LABS: Internal QC Validated? YES +Cl - CLEAR BKGD; Monotest Negative (Negative)
--- NOTE | 2018-11-24 16:10 | ED.DCSUM_ITS ---
- ER Visit Summary Date of Service: 11/24/18 Chief Complaint: Sick History of Present Illness: The patient is a 33 F who has been feeling sick for the past week. She has had cold symptoms, sore throat, chills, night sweats, body aches, right ear pain. She has seen urgent care as well as her doctor. She is currently on Augmentin as well as nasal steroids, nasal sprays, eardrops. Nothing seems to make her symptoms better. She has a history of migraines and also back pain. She was diagnosed with an ear congestion in October and bronchitis in August. She was concerned for strep, mono, meningitis. Physical Examination: Afebrile. Heart rate 107 and blood pressure 163/113. HE ENT exam grossly unremarkable. Neck shows good range of motion. No meningeal signs. Heart is regular. Mild tachycardia. Lungs are clear in all jeffries. Extremities nontender with no edema. Skin is normal in color. Cranial nerves grossly intact. Normal strength and sensation. Test Results: Chest x-ray, 2 views, is normal. No sign of pneumonia. Strep test was negative. Influenza testing negative. [place] testing was negative. Emergency Department Course and Treatment: I believe the patient has a viral illness. Her exam is reassuring. There is nothing to suggest encephalitis or meningitis. There is no indication for lumbar puncture. She was concerned about strep and mono. I was also concerned about influenza. Testing was all negative. Patient's symptoms were treated with fluids, Toradol, Zofran, and Solu-Medrol. On reevaluation, she is stable. Repeat vitals were 159/87, heart rate 83, 100% on room air. I believe she is appropriate for outpatient care. She should continue her antibiotics. Stay hydrated. There is no indication for further emergent testing. She is otherwise healthy and her exam is reassuring. There is no indication for hospitalization. Patient should check in with her family doctor. Return for any new or worsening issues. Treatment Plan: As above Disposition: Discharge Impression: 1. Influenza-like illness This note was generated with [employer] software. It may contain incorrect words, spelling, and punctuation that were not noted in review of the chart prior to signing ED Disposition - Plan for ED Patient: Instructions: Adult Self-Care for Colds and Flu Referrals: Harish Lopez MD [Primary Care Provider] -
--- NOTE | 2018-11-24 16:14 | ED.DEP ---
ED Disposition - Plan for ED Patient: Instructions: Adult Self-Care for Colds and Flu Referrals: Harish Lopez MD [Primary Care Provider] -
[2018-11-24 16:44] VITALS: BP 156/110
== END 2018-11-24 16:50 | disposition home or self-care (01) ==
LOC: ED 14:30
PROVIDERS: Emergency Provider Emergency Medicine; Family Provider Family Medicine; PCP Family Medicine
DX: J11.1 Influenza due to unidentified influenza virus with other respiratory manifestations (principal)
CPT/HCPCS: 71046; 86308; 87804; 87880; 96361; 96374; 96375; 99283; J7030; A4216; J2405

== ENCOUNTER → 2020-07-12 15:24 | Outpatient (CLI) | payer BC, SELFPAY ==
[2020-06-05 10:47] VITALS: BMI 37.2
== END ==
PROVIDERS: PCP Family Medicine; Referring Provider Obstetrics & Gynecology; Visit Provider Obstetrics & Gynecology
DX: Z03.818 Encounter for observation for suspected exposure to other biological agents ruled out (principal)
CPT/HCPCS: 87635; C9803; U0002

== ENCOUNTER 2020-07-16 05:05 | Inpatient (IN) | payer BC, SELFPAY ==
[2020-06-05 10:47] VITALS: BMI 37.2
--- NOTE | 2020-07-15 15:51 | HP.PCM_ITS ---
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 Signed Encounter Date: 07/10/2020 Expand AllCollapse All Expand All by Default Hide copied text Hover for details Pre-Op History and Physical ? HPI: The patient is a 35 year old female presenting for pre-operative visit. She is scheduled for , for elective primary cs for severe chronic back pain that she feels may be exacerbated by another vaginal delivery- pt was counseled extensively about the risks of c/s vs vaginal delivery. - is sheudlued for primary cs with bilateral salpingectomy at 39.2 weeks gestation on 07/16/20 . H/o polyhydramnios in . Procedure discussed along with risks, benefits and complications. Other alternatives discussed for management. Consent form signed? Yes. ? ? PAST MEDICAL HISTORY PAST MEDICAL HISTORY Diagnosis Date ? Anemia ? ? Anxiety ? ? anxiety ? ? Depression ? ? Fibrocystic breast changes ? ? fibrocystic breasts ? ? kidney stone 2016 ? 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 ? Patient states no use since 2018 ? Lumbar back pain ? ? Lumbar facet arthropathy ? ? Lumbar herniated disc ? ? 2 herniated discs ? Lumbar spondylolysis ? ? Lumbosacral radiculitis ? ? Lumbosacral stenosis ? ? Migraines ? ? nausea with anesthesia ? ? Other acne ? ? ? PAST SURGICAL HISTORY PAST SURGICAL HISTORY Procedure Laterality Date ? BACK SURGERY HX ? ? ? EXTRACTION, ERUPTED TOOTH OR EXPOSED ROOT (ELEVATION AND/OR FORCEPS REMOVAL) ? 10/18/2014 ? x4 ? PAST SURGICAL HISTORY OF ? ? ? tonsillectomy ? PAST SURGICAL HISTORY OF ? 01/03/2013 ? Lumbar (Dr. Brown) ? TONSILLECTOMY HX ? CURRENT MEDICATIONS Current Outpatient Medications Medication Sig Dispense Refill ? Ferrous Sulfate (SLOW FE) 142 mg (45 mg iron) TbER Take 1 tablet by mouth once daily. ? ? ? folic acid 1 mg tablet Take 1 tablet by mouth once daily. ? ? ? pyridoxine, vitamin B6, (VITAMIN B6) 50 mg tablet Take 1 tablet by mouth twice daily. 120 tablet 0 ? diphenhydramine HCl (UNISOM, DIPHENHYDRAMINE, ORAL) Take by mouth. ? ? ? No current facility-administered medications for this visit. ? ? ALLERGIES: Demoral [Meperidine], Hydrocodone-Acetaminophen, Percocet [Oxycodone- Acetaminophen], and Sudafed [Pseudoephedrine Hcl] ? PERSONAL HISTORY: SOCIAL HISTORY Social History ? Tobacco Use ? Smoking status: Never Smoker ? Smokeless tobacco: Never Used Vaping Use ? Vaping Use: Never used Substance Use Topics ? Alcohol use: Not Currently ? ? Comment: rare, not while ? Drug use: No ? FAMILY HISTORY: FAMILY HISTORY FAMILY HISTORY Problem Relation Age of Onset ? Allergies Mother ? ? other (Ovarian cysts) Mother ? ? other (Factor V- Pt states she was tested and does not have) Mother ? ? other (degenerative disc back) Father ? ? No Known Problems Brother ? ? other (esophageal reflux) Maternal Grandmother ? ? Heart Maternal Grandfather ? ? Alzheimer's Disease Paternal Grandmother ? ? No Known Problems Son ? ? ? REVIEW OF SYMPTOMS: negative except as noted above PHYSICAL EXAMINATION: ? VITALS: Blood pressure 115/78, weight 228 lb (103.4 kg), last menstrual period 10/15/2019. ? GENERAL: The patient is well nourished, well hydrated in no acute distress. , The patient is oriented to time, place, and person. NECK: full range of motion GENITALIA: deferred ? IMPRESSION: 39.2 weeks gestation- requesting primary elective cs for chronic back pain and bilteral salpingectomy for desires sterilization. ? PLAN: Primary section, bilateral salpingectomy ? Pt has been counseled on risks/benefits and alternatives of surgery including but not limited to anesthesia, bleeding, infection, injury to pelvic structures including bowel, bladder, ureters and vessels. Pt wishes to proceed with surgery at this time. ? ERAS protocol reviewed Pre and post op instructions reviewed Risk of regret reviewed ? ? I have reviewed and updated past medical and surgical history, medications and allergies Lashon Padilla MD Routine Office Visit on 07/10/2020 Routine Office Visit on 07/10/2020 Note shared with patient v
[2020-07-16] VITALS (19 sets, daily range): BP systolic 98–143; BP diastolic 48–82; PULSE 70–99; RESP 16; TEMP 36.1–37; O2SAT 98–100; BMI 38.3
[2020-07-16] MEDS: Lactated Ringers 1,000 ML 999 ML IV (05:30)
[2020-07-16 05:53] LABS: Absolute Lymphocyte Count 2.23 X10^3/uL (0.83-4.51); Absolute Neutrophil Count 7.3 X10^3/uL (2.0-7.7); Basophil# 0.02 X10^3/uL; Basophil% 0.2 % (0-1); Eosinophil# 0.08 X10^3/uL; Eosinophils% 0.8 % (0-5); Hematocrit 34.7 % (37-47); Hemoglobin 11.1 g/dL (12.0-15.0); Lymphocyte # 2.23 X10^3/ul (0.83-4.51); Lymphocyte % 21.2 % (19-41); Mean Corpuscular Hgb 28.9 pg (27.0-32.0); Mean Corpuscular Volume 90.4 fL (81-99); Mean Platelet Vol. 10.3 fl (6.2-12.0); Monocyte# 0.77 X10^3/uL; Monocyte% 7.3 % (0-10); NRBC Flagged by Analyzer 0 % (0-5); Neutrophil # 7.31 X10^3/uL (2.7-7.7); Neutrophil % 69.5 % (47-70); Platelet Count 290 K/mm3 (150-450); RBC Distribution Width CV 14.4 % (11.6-14.6); RBC Distribution Width SD 47.8 fl (35.1-43.9); Red Blood Count 3.84 M/mm3 (4.2-5.4); White Blood Count 10.5 K/mm3 (4.4-11.0)
[2020-07-16] MEDS: Acetaminophen 500 MG Tablet 1000 MG PO ×3 (06:03→20:13)
[2020-07-16] MEDS: Lactated Ringers 1,000 ML 150 ML IV (06:41)
[2020-07-16] MEDS: Sodium Citrate/Citric Acid 30 ML UDC PO (07:04)
[2020-07-16] MEDS: Cefazolin 2 GM in 0.9% Normal Saline 100 ML IV (07:17)
--- NOTE | 2020-07-16 07:46 | FALS_PTH ---
PATIENT: DILIP MORELOS LOC: [facility] U#:[id number] AGE/SX: 35/F ROOM: WP005 RE07/16/[address]: Dr. Lashon Price, MDDOB: 1985 BED: 1 DIS: 07/18/2020 SPEC #: [id number] RECD: 07/16/20 08:37 STATUS: MARTIN KEVIN #: [id number] MIGUEL A: 07/16/20 07:[address]: Lashon Price DEPT: SURGICAL PATHOLOGY RECD BY: Jimbo Ramachandran ENTERED: 07/16/20 09:57 SP TYPE: FALL TUBES OTHR DR: Dr. Harish Lopez MD Tissues: Fallopian tube Procedures: Surgery Specimen Level II HEADER OPERATION: Tubal ligation PRE-OP DIAGNOSIS: Sterilization TISSUE SUBMITTED: Fallopian tubes MICROSCOPIC DIAGNOSIS Bilateral fallopian tubes, salpingectomy: Bilateral fallopian tubes, no pathologic diagnosis. AUREA:tirso 07/17/2020 MICROSCOPIC DESCRIPTION Slides are reviewed. GROSS DESCRIPTION Received in fixative is one container labeled with the patient's name and designated bilateral fallopian tubes, suture in right. The specimen consists of bilateral fallopian tubes including fimbrial ends. The right fallopian tube measures 7 cm in length and up to 0.9 cm in diameter and the left fallopian tube measures 3.5 cm in length and 0.8 cm in diameter. Sections reveal unremarkable cut surfaces. Also present in the container is a detached piece of fallopian tube most likely representing left fallopian tube piece measuring 2 cm in length and 0.5 cm in diameter. Bullet Maker sections are submitted in two cassettes as follows: 1 ? right fallopian tube, 2 ? left fallopian tube. / AUREA:tirso 07/16/20 TC:4 CPT: 22126 x2
--- NOTE | 2020-07-16 08:24 | OP.PCM_ITS ---
Assessment & Plan (1) Delivery by section: Maternal Data Information Final FLOR: 07/20/20 Final FLOR Source: US <20 weeks Gestational age: 39.3 Details Operative Information Date of Procedure: 07/16/20 Pre-Operative Diagnosis: elective primary cs, desires sterilization Post-Operative Diagnosis: Same, live male Indications for : Desires elective sterilization and - (Elective primary cs ) Indications Narrative: Patient choosing for an elective primary section due to chronic back pain - patient counseled extensively that this is not a recommendation but patient understands the risks and want to proceed. Patient had conversations with her specialist regarding vaginal delivery versus C- section. Patient also desires permanent sterilization. She understands that this is permanent and risk of regret is possible. 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 she was placed in the supine position. She was then prepped and draped in normal sterile fashion. Once spinal anesthesia was found to be adequate skin incision was made with a scalpel in a Pfannenstiel fashion. It was carried down to the underlying layer of the fascia. Fascia was then incised midline with scapel and extended laterally using curved avendano. 2 straight Claudia's were placed in the inferior aspect of the fascial edge and the rectus muscles were dissected off sharply. Attention was then turned to the superior aspect where again the fascial edge was grasped with 2 straight Claudia clamps tented up and the rectus muscle dissected off sharply . At this time the rectus muscles were separate bluntly. Using blunt force the peritoneum was then entered. Gentle opposing traction pl aced to extend incision. At this time the vesicouterine peritoneum was identified. Uterine incision was made in a low transverse fashion with the scalpel and then entered bluntly. Gentle opposing traction was placed to extend the uterine incision. The membranes were ruptured amniotic fluid clear. 's head was then brought to the uterine incision was delivered atraumatically followed by the rest 's body. At this time delayed cord clamping was performed mouth nose were suctioned. was then handed to the waiting nursery team. The placenta was then removed with gentle traction. The uterus was removed from the intra-abdominal cavity is wrapped in a moist lap. uterus was cleared of all clots and debris using a moist lap. Ring clamps were placed on the uterine angles. #1 Vicryl suture was used in a running locked fashion for the first layer. Followed by second layer with #1 Vicryl. At this time then the uterus was placed back into abdominal cavity uterine incision was evaluated and noted to be of good hemostasis. Tubes and ovaries were evaluated they were normal. The tubes were grasped in an avascular area with the Bayron and LigaSure was used to coagulate and ligate along the mesosalpinx to remove the entire tube. This was repeated on the opposite side. Great hemostasis was appreciated at this time the uterine incision was again evaluated good hem ostasis was appreciated. Chante was placed over the pedicles as well as the uterine incision. The peritoneum was grasped with Kellys. Peritoneum and muscle were reapproximated using #2 Vicryl suture in a running fashion. The fascia was then reapproximated using #1 Vicryl in a running fashion. Subcutaneous layer was evaluated and Bovie was used for any small oozing that was noted per #2-0 plain gut suture was then used to reapproximate the subcutaneous layer 4-0 monocryl was used to reapproximate the skin in a subcutaneous fashion. Dry sterile dressing was applied. Instrument lap needle count were correct ?2. Anticipated normal postoperative course for this patient. Presentation: Positive for Vertex Amniotic Membrane Rupture Type: Artificial Amniotic Fluid Description: Clear Placental Delivery Description: Spontaneous Placenta Disposition: [facility] Specimen(s) Sent to Pathology: none Cord Vessel Description: 3 Vessels Cord Entanglement: None A Gender: Male (1 minute): 8 (5 minute): 9 Delayed Cord Clamping: Yes Complications Risks of Surgery Discussed w/Patient: Bleeding, Anesthesia Risks, Infection, Permanency, Injury to surrounding structure(s) including bowel and bladder and Availability of other non-permanent control options Complications: none Admit VTE Documentation VTE Present on Admission: Yes VTE Mechan Device Prophylaxis: SCD's VTE Pharm Prophylaxis Ordered: Yes
[2020-07-16] MEDS: Lactated Ringers 1,000 ML 100 ML IV ×2 (08:30→13:41)
[2020-07-16 08:37] LABS: Pathology Specimen OB SEE PATHOLOGY REPORT
[2020-07-16] MEDS: Ketorolac 30 MG/ML Syringe IV ×3 (08:45→21:08)
[2020-07-16] MEDS: Oxytocin 30 units/NS 500 ml 30 UNITS/500 ML IV.SOLN 167 UNITS IV (08:45)
[2020-07-16] MEDS: DULoxetine Hcl 30 MG Capsule PO ×2 (10:17→21:08)
--- NOTE | 2020-07-16 10:45 | PCM.NUR.HP ---
Subjective Subjective: Term AGA BB born via scheduled c/s at 746 on 07/16/2020 at 39+2 weeks. Objective Objective Data: 07/16/20 06:20 07/16/20 08:38 07/16/20 08:43 Temperature 97.7 F L 97.1 F L 97.1 F L Temperature Source Temporal Temporal Temporal Pulse Rate 99 84 80 Respiratory Rate 16 16 16 Respiratory Depth Respiratory Pattern Normal Blood Pressure 143/82 H 98/48 L 106/52 L Blood Pressure Mean 102 64 70 Blood Pressure Source Monitor Monitor Monitor Blood Pressure Position Semi-Fowlers Semi-Fowlers Semi-Fowlers Blood Pressure Location Left Arm Right Arm Right Arm Baseline BP 143/82 143/82 Pulse Ox 99 100 100 Oxygen Delivery Method Room Air Room Air Room Air 07/16/20 08:46 07/16/20 09:04 07/16/20 09:14 Temperature 97.0 F L 97.0 F L Temperature Source Temporal Temporal Pulse Rate 79 81 Respiratory Rate 16 16 Respiratory Depth Normal Respiratory Pattern Blood Pressure 107/58 L 103/57 L Blood Pressure Mean 74 72 Blood Pressure Source Monitor Monitor Blood Pressure Position Semi-Fowlers Semi-Fowlers Blood Pressure Location Right Arm Right Arm Baseline BP 143/82 143/82 Pulse Ox 100 99 98 Oxygen Delivery Method Room Air Room Air Room Air 07/16/20 09:23 07/16/20 09:37 07/16/20 09:53 Temperature 98.0 F 98.0 F 98.0 F Temperature Source Temporal Temporal Temporal Pulse Rate 92 81 87 Respiratory Rate 16 16 16 Respiratory Depth Respiratory Pattern Blood Pressure 103/57 L 112/53 L 109/63 Blood Pressure Mean 72 72 78 Blood Pressure Source Monitor Monitor Monitor Blood Pressure Position Semi-Fowlers Semi-Fowlers Semi-Fowlers Blood Pressure Location Right Arm Right Arm Right Arm Baseline BP 143/82 143/82 143/82 Pulse Ox 99 98 98 Oxygen Delivery Method Room Air Room Air Room Air 07/16/20 10:08 Temperature 97.2 F L Temperature Source Temporal Pulse Rate 83 Respiratory Rate 16 Respiratory Depth Respiratory Pattern Blood Pressure 116/62 Blood Pressure Mean 80 Blood Pressure Source Monitor Blood Pressure Position Semi-Fowlers Blood Pressure Location Right Arm Baseline BP 143/82 Pulse Ox 98 Oxygen Delivery Method Room Air Weight: 104.598 kg Vital Signs Temp Pulse Resp BP Pulse Ox 07/16/20 10:08 97.2 F L 83 16 116/62 98 07/16/20 09:53 98.0 F 87 16 109/63 98 07/16/20 09:37 98.0 F 81 16 112/53 L 98 07/16/20 09:23 98.0 F 92 16 103/57 L 99 07/16/20 09:14 97.0 F L 81 16 103/57 L 98 07/16/20 09:04 97.0 F L 79 16 107/58 L 99 07/16/20 08:46 100 07/16/20 08:43 97.1 F L 80 16 106/52 L 100 07/16/20 08:38 97.1 F L 84 16 98/48 L 100 07/16/20 06:20 97.7 F L 99 16 143/82 H 99 Lab tests last 48H 07/16/20 07/16/20 05:30 05:30 WBC 10.5 RBC 3.84 L Hgb 11.1 L Hct 34.7 L MCV 90.4 MCH 28.9 MCHC 32.0 RDW Std Deviation 47.8 H RDW Coeff of Halle 14.4 Plt Count 290 MPV 10.3 Immature Gran % (Auto) 1.000 H Neut % (Auto) 69.5 Lymph % (Auto) 21.2 [place] % (Auto) 7.3 Eos % (Auto) 0.8 Baso % (Auto) 0.2 Absolute Neuts (auto) 7.3 Absolute Lymphs (auto) 2.23 Nucleated RBC % 0 Blood Type A POSITIVE Antibody Screen NEGATIVE Vital Signs Vital Signs Vital Signs: 07/16/20 06:20 07/16/20 08:38 07/16/20 08:43 Temperature 97.7 F L 97.1 F L 97.1 F L Temperature Source Temporal Temporal Temporal Pulse Rate 99 84 80 Respiratory Rate 16 16 16 Respiratory Depth Respiratory Pattern Normal Blood Pressure 143/82 H 98/48 L 106/52 L Blood Pressure Mean 102 64 70 Blood Pressure Source Monitor Monitor Monitor Blood Pressure Position Semi-Fowlers Semi-Fowlers Semi-Fowlers Blood Pressure Location Left Arm Right Arm Right Arm Baseline BP 143/82 143/82 Pulse Ox 99 100 100 Oxygen Delivery Method Room Air Room Air Room Air 07/16/20 08:46 07/16/20 09:04 05/18/21 09:14 Temperature 97.0 F L 97.0 F L Temperature Source Temporal Temporal Pulse Rate 79 81 Respiratory Rate 16 16 Respiratory Depth Normal Respiratory Pattern Blood Pressure 107/58 L 103/57 L Blood Pressure Mean 74 72 Blood Pressure Source Monitor Monitor Blood Pressure Position Semi-Fowlers Semi-Fowlers Blood Pressure Location Right Arm Right Arm Baseline BP 143/82 143/82 Pulse Ox 100 99 98 Oxygen Delivery Method Room Air Room Air Room Air 07/16/20 09:23 07/16/20 09:37 07/16/20 09:53 Temperature 98.0 F 98.0 F 98.0 F Temperature Source Temporal Temporal Temporal Pulse Rate 92 81 87 Respiratory Rate 16 16 16 Respiratory Depth Respiratory Pattern Blood Pressure 103/57 L 112/53 L 109/63 Blood Pressure Mean 72 72 78 Blood Pressure Source Monitor Monitor Monitor Blood Pressure Position Semi-Fowlers Semi-Fowlers Semi-Fowlers Blood Pressure Location Right Arm Right Arm Right Arm Baseline BP 143/82 143/82 143/82 Pulse Ox 99 98 98 Oxygen Delivery Method Room Air Room Air Room Air 07/16/20 10:08 Temperature 97.2 F L Temperature Source Temporal Pulse Rate 83 Respiratory Rate 16 Respiratory Depth Respiratory Pattern Blood Pressure 116/62 Blood Pressure Mean 80 Blood Pressure Source Monitor Blood Pressure Position Semi-Fowlers Blood Pressure Location Right Arm Baseline BP 143/82 Pulse Ox 98 Oxygen Delivery Method Room Air General Weight: 104.598 kg
[2020-07-16] MEDS: Ondansetron 4 MG/2 ML Vial IV (11:30)
[2020-07-16] MEDS: proCHLORPERazine 10 MG/2 ML Vial IV (12:23)
[2020-07-16] MEDS: Ferrous Sulfate 325 MG Tablet PO (23:35)
[2020-07-16] MEDS: Enoxaparin 40 MG/0.4 ML Syringe SC (23:35)
[2020-07-17 01:01] VITALS: BP 96/55; PULSE 83; RESP 17; TEMP 36.5; O2SAT 99
[2020-07-17] MEDS: Acetaminophen 500 MG Tablet 1000 MG PO ×4 (01:52→21:21)
[2020-07-17] MEDS: Ketorolac 30 MG/ML Syringe IV (02:50)
[2020-07-17] MEDS: 0.9% Saline Lock 10 ML Syringe IV (02:50)
[2020-07-17 04:44] VITALS: BP 115/68; PULSE 78; RESP 16; TEMP 36.6; O2SAT 95
[2020-07-17 08:00] VITALS: BP 111/65; PULSE 74; RESP 16; TEMP 36.6; O2SAT 96
--- NOTE | 2020-07-17 08:05 | PCM.PN.OB ---
Subjective Subjective Patient seen at bedside. Feeling good. Ambulating and voiding without difficulty. Passing flatus. Denies any SOB, CP or dizziness. with support. Anticipate discharge tomorrow. Objective Data Objective Data Vital Signs: Vital Signs Temp Pulse Resp BP Pulse Ox 97.3 F L 91 16 109/63 96 07/17/20 13:32 07/17/20 13:32 07/17/20 13:32 07/17/20 13:32 07/17/20 13:32 Oxygen Delivery Method Room Air Weight: 230 lb 9.6 oz Body Mass Index (BMI) 38.3 Intake & Output: Intake and Output for Last 24 Hours 07/15/20 07/16/20 07/17/20 23:59 23:59 23:59 Intake Total 4766.66 / 4766.66 Output Total 1650 / 1650 875 / 875 Balance 3116.66 / 3116.66 -875 / -875 Lab / Micro Data Result Diagrams: 07/16/20 05:30 ROS Eyes Eyes: Denies blurry vision, change in vision or spots in vision ENT HEENT: Denies dizziness or headache(s) Cardiovascular Cardiovascular: Denies abdominal pain, chest pain or dyspnea Respiratory/Chest Respiratory/Chest: Denies cough, dyspnea, shortness of breath at rest or shortness of breath with exertion Gastrointestinal Gastrointestinal: Denies abdominal pain, diarrhea or vomiting Genitourinary Genitourinary: Denies change in urinary stream, difficulty urinating or dysuria Musculoskeletal Musculoskeletal: Reports none Integumentary Integumentary: Denies rash Neurologic Neurologic: Denies dizziness, headache(s), memory loss or weakness Physical Exam Const alert and no apparent distress General Appearance: cooperative and comfortable Exam Limitations: no limitations HEENT normocephalic Eyes General Eye: normal appearance of both eyes Neck full ROM General: normal visual inspection Chest Chest: symmetrical chest wall rise Resp normal respiratory effort and normal air movement Effort and Inspection: symmetric chest movement Auscultation: clear to auscultation bilaterally Cardio regular rate and regular rhythm GI normal to inspection, nondistended, normoactive bowel sounds Back/Spine normal ROM Extremity full ROM and no calf tenderness General Extremity: normal exam except as noted Skin no rashes or lesions noted Neuro CN's II-XII intact bilaterally Psych mental status grossly normal Assessment & Plan (1) Delivery by section: PLAN: POD #1 C/S Routine care Pain management Breast feeding support Anticipate discharge home tomorrow
[2020-07-17] MEDS: DULoxetine Hcl 30 MG Capsule PO ×2 (09:47→22:57)
[2020-07-17] MEDS: Ibuprofen 600 MG Tablet PO ×3 (09:47→21:20)
[2020-07-17 13:32] VITALS: BP 109/63; PULSE 91; RESP 16; TEMP 36.3; O2SAT 96
[2020-07-17] MEDS: Senna/Docusate Sodium 1 Tablet PO (13:41)
[2020-07-17 20:54] VITALS: BP 121/73; PULSE 79; RESP 16; TEMP 36.9; O2SAT 94
[2020-07-17] MEDS: Enoxaparin 40 MG/0.4 ML Syringe SC (22:56)
[2020-07-17] MEDS: Ferrous Sulfate 325 MG Tablet PO (22:57)
[2020-07-18] MEDS: Acetaminophen 500 MG Tablet 1000 MG PO ×2 (02:35→07:50)
[2020-07-18] MEDS: Ibuprofen 600 MG Tablet PO ×2 (02:36→09:39)
[2020-07-18 02:59] VITALS: BP 120/71; PULSE 73; RESP 18; TEMP 36.6
[2020-07-18 05:24] LABS: Hematocrit 31.3 % (37-47); Mean Corp Hgb Conc 31.9 g/dL (32-36); Mean Corpuscular Hgb 29.5 pg (27.0-32.0); Mean Corpuscular Volume 92.3 fL (81-99); Platelet Count 268 K/mm3 (150-450); RBC Distribution Width CV 14.7 % (11.6-14.6); RBC Distribution Width SD 49.5 fl (35.1-43.9); Red Blood Count 3.39 M/mm3 (4.2-5.4)
[2020-07-18 07:53] VITALS: BP 121/77; PULSE 76; RESP 16; TEMP 36.3
[2020-07-18] MEDS: Senna/Docusate Sodium 1 Tablet PO (09:40)
--- NOTE | 2020-07-18 09:41 | PCM.PN.OB ---
Subjective Subjective No complaints Objective Data Objective Data Vital Signs: Vital Signs Temp Pulse Resp BP Pulse Ox 97.4 F L 76 16 121/77 H 94 07/18/20 07:53 07/18/20 07:53 07/18/20 07:53 07/18/20 07:53 07/17/20 20:54 Oxygen Delivery Method Room Air Weight: 230 lb 9.6 oz Body Mass Index (BMI) 38.3 Intake & Output: Intake and Output for Last 24 Hours 07/16/20 07/17/20 07/18/20 23:59 23:59 23:59 Intake Total 4766.66 / 4766.66 Output Total 1650 / 1650 875 / 875 Balance 3116.66 / 3116.66 -875 / -875 Lab / Micro Data Result Diagrams: 07/18/20 05:15 Labs: Laboratory Results - last 24 hr 07/18/20 05:15 WBC 11.0 RBC 3.39 L Hgb 10.0 L Hct 31.3 L MCV 92.3 MCH 29.5 MCHC 31.9 L RDW Std Deviation 49.5 H RDW Coeff of Halle 14.7 H Plt Count 268 MPV 10.0 Physical Exam Const alert, oriented x3 and no apparent distress HEENT normocephalic GI soft to palpation, non-tender and non-distended GI Narrative: fundus firm, mid & below umbilicus Incision - bandage c/d/i Extremity normal to inspection and no calf tenderness Assessment & Plan (1) Delivery by section: COMMENT: POD#2 PLAN: D/c home
--- NOTE | 2020-07-18 09:42 | PCM.DC ---
Discharge Instructions Diet Discharge Diet: No restrictions Activity Discharge Activity: May Shower May resume sexual activity in: 6 weeks Weight Bearing Status: Weight bearing as tolerated Dressing / Incision Call your doctor if your incision/area has: Continuous Slow Oozing, Sudden Increased Bleeding, Increased Pain/ Swelling, Increased Redness, Foul Smelling Discharge and Swelling at the incision site Call your doctor if you observe: Fever of 101 or Higher, Coldness, Increased Pain, Change in Color, Inability to urinate, Inability to have a bowel movement, Using more than one pad per hour, Shortness of breath, Dizziness, Fainting spells, Chest pain, Increased palpitations (irregular heartbeat), Calf discomfort and Uncontrolled pain Suture Line Care: Avoid Pulling/Pushing and Avoid Pinching/Bending Remove Dressing in: 1 week Cleanse incision/area with: Soap & Water Follow Up Care Please Follow Up With: Zeb Rainey MD When: Follow up in 2 and 6 weeks for visits. Test Results: Test results from this visit will be discussed in further detail at your follow-up appointment, if applicable. Discharge Plan Admission Admit Date/Time: 07/16/20 05:05 Primary Reason for Your Visit: section Attending Provider: Lashon Price Primary Care Provider: Harish Lopez Discharge Orders/Prescriptions Prescriptions: New acetaminophen 500 mg Tablet 1,000 mg PO Q6H Qty: 0 RF: 0 ibuprofen 600 mg Tablet 600 mg PO Q6H Qty: 0 RF: 0 Continued duloxetine 30 mg capsule,delayed release(DR/EC) 30 mg PO BID RF: 0 ferrous sulfate [iron] 325 mg (65 mg iron) Tablet 325 mg PO DAILY RF: 0 folic acid 0.8 mg Capsule RF: 0 Discontinued desogestrel-ethinyl estradiol [Apri] 0.15-0.03 mg tablet 1 tab PO DAILY RF: 0 Referrals / Follow Up: Harish Lopez MD [Primary Care Provider] - Disposition Disposition (needs filled in before D/C Order can be placed): Home, self care
[2020-07-18] MEDS: DULoxetine Hcl 30 MG Capsule PO (10:41)
[2020-07-18 11:32] VITALS: BP 125/69; PULSE 70; RESP 16; TEMP 36.9
== END 2020-07-18 13:05 | disposition home or self-care (01) | DRG 785 ==
PROVIDERS: Admitting Provider Obstetrics & Gynecology; PCP Family Medicine; Visit Provider Obstetrics & Gynecology
PROC: 10D00Z1 Extraction of Products of Conception, Low, Open Approach (ICD-10-PCS; CPT 59514; principal; 2020-07-16 07:15)
DX: O99.892 Other specified diseases and conditions complicating childbirth (principal); M47.816 Spondylosis without myelopathy or radiculopathy, lumbar region; M54.17 Radiculopathy, lumbosacral region; M48.07 Spinal stenosis, lumbosacral region; G89.29 Other chronic pain; Z79.891 Long term (current) use of opiate analgesic; Z3A.39 39 weeks gestation of pregnancy; Z37.0 Single live birth; Z30.2 Encounter for sterilization
CPT/HCPCS: 85025; 85027; 86850; 86900; 86901; 88302; 99218; 99251; J7120; A4216; G0378; G0463; J2405

== ENCOUNTER 2020-08-03 14:55 | Outpatient (CLI) | payer BC, SELFPAY ==
[2020-07-16 05:14] VITALS: BMI 38.3
== END 2020-08-03 15:35 | disposition home or self-care (01) ==
LOC: WPOUT 15:05 → WP 15:06
PROVIDERS: PCP Family Medicine; Visit Provider Obstetrics & Gynecology
DX: O92.79 Other disorders of lactation (principal)
CPT/HCPCS: 96158

== ENCOUNTER → 2022-11-24 | Outpatient (CLI) | payer OTHER, SELFPAY ==
--- NOTE | 2022-11-24 06:41 | MRI_ITS ---
HISTORY: CHRONIC MIGRAINE. TECHNIQUE: Multiplanar and multisequence MR images of the brain were obtained without contrast. 282 images. COMPARISON: None. FINDINGS: BRAIN PARENCHYMA: No significant signal abnormality in the brain parenchyma. No abnormal focus of restricted diffusion to suggest acute infarct. No acute intracranial hemorrhage identified. CSF SPACES: Cerebral ventricles, cortical sulci, and other extra-axial CSF spaces within normal limits in size for age. No significant midline shift or other mass effect.No extra-axial fluid collection. VASCULAR SYSTEM: Major intracranial flow voids are maintained. PARANASAL SINUSES AND MASTOID AIR CELLS: No significant air fluid levels. ORBITS: Symmetric contents. MRI/Brain without Contrast IMPRESSION: Unremarkable examination. No evidence for significant signal abnormality in the brain. Electronically Signed: Myesha Capellan MD at 9:01 EDT ,
== END | disposition home or self-care (01) ==
PROVIDERS: PCP Family Medicine; Referring Provider Psychiatry & Neurology Neurology; Visit Provider Psychiatry & Neurology Neurology
DX: G43.719 Chronic migraine without aura, intractable, without status migrainosus (principal)
CPT/HCPCS: 70551